=== PATIENT | male | born 1970 | race Caucasian/White ===

== ENCOUNTER 2022-07-08 09:46 | Inpatient (IN) | payer OTHER, SELFPAY ==
--- NOTE | ~2022-07-08 | CT_ITS ---
EXAMINATION: CT CERVICAL SPINE WITHOUT CONTRAST CLINICAL INFORMATION: Syncope and collapse. COMPARISON: None available. TECHNIQUE: Multiple axial images of the cervical spine were obtained without the administration of intravenous contrast. Coronal and sagittal reformatted images were obtained. This CT examination was performed using dose optimization techniques as appropriate, variously including the following: *Automated exposure control *Adjustment of mA and/or kV according to patient size (this includes techniques or standardized protocols for targeted exams where dose is matched to indication/reason for exam; i.e. extremities or head) *Use of iterative reconstruction technique DLP: 471.19 mGy-cm FINDINGS: Mild to moderate multilevel degenerative disc disease is seen most pronounced at C3-4 with minimal grade 1 retrolisthesis and C6-7. Mild bilateral neural foraminal narrowing is seen at these levels as well. The vertebral bodies are intact. The odontoid process is intact. Mild to moderate multilevel bilateral facet arthropathy is seen. Osseous fusion is seen on the left at C5-6. The spinous processes are intact. There is no acute fracture. The cervical soft tissues are unremarkable. There is no lymphadenopathy. The thyroid gland is unremarkable. The lung apices are clear. CT/CT cervical spine wo IV con IMPRESSION: Multilevel degenerative changes without acute abnormality.
--- NOTE | ~2022-07-08 | US_ITS ---
EXAMINATION: US ABDOMEN COMPLETE CLINICAL INFORMATION: Elevated LFTs. Site of pain.. COMPARISON: None available. TECHNIQUE: Real-time imaging of the abdominal viscera. FINDINGS: PANCREAS: Small portion of the body is identified with the head and tail being obscured by overlying bowel gas. ABDOMINAL AORTA: Obscured by overlying bowel gas. INFERIOR VENA CAVA: Obscured by overlying bowel gas. LIVER: There is increased echogenicity consistent with fatty infiltration. The liver is normal in size. The liver contour is normal. No focal hepatic lesion. There is no intrahepatic biliary duct dilatation seen. GALLBLADDER: Normal. The gallbladder is physiologically distended without evidence of stones, sludge, polyps, wall thickening or pericholecystic fluid. COMMON BILE DUCT: Normal in caliber measuring 0.3 cm in diameter. RIGHT KIDNEY: Normal. No hydronephrosis. No renal calculi or focal parenchymal lesions. The kidney measures 12.1 cm in maximum dimension. LEFT KIDNEY: Normal. No hydronephrosis. No renal calculi or focal parenchymal lesions. The kidney measures 10.8 cm in maximum dimension. SPLEEN: Normal. The spleen measures 12.2 cm in maximum dimension. FREE FLUID: None. US/US abdomen complete IMPRESSION: Increased echogenicity of the liver consistent with fatty infiltration.
--- NOTE | ~2022-07-08 | CT_ITS ---
EXAMINATION: CT HEAD WITHOUT CONTRAST CLINICAL INFORMATION: Syncope and collapse, rule out intracranial abnormality. COMPARISON: None available. TECHNIQUE: Contiguous axial imaging was performed from the skull base to vertex without intravenous administration of contrast. Coronal and sagittal reformatted images were obtained. This CT examination was performed using dose optimization techniques as appropriate, variously including the following: *Automated exposure control *Adjustment of mA and/or kV according to patient size (this includes techniques or standardized protocols for targeted exams where dose is matched to indication/reason for exam; i.e. extremities or head) *Use of iterative reconstruction technique DLP: 637.27 mGy-cm FINDINGS: There is mild widening of the cortical sulci and associated ventriculomegaly. The lateral ventricles are symmetrical. The third and fourth ventricles are in their normal midline position. The basilar and prepontine cisterns are unremarkable. There is no acute intra or extracerebral abnormality. There is no mass effect or midline shift. Sections through the bony calvarium are unremarkable. The orbits are intact. The paranasal sinuses mild to moderate mucosal thickening is seen in the ethmoid, sphenoid and right maxillary sinuses. The mastoid air cells are clear. CT/CT head/brain wo IV con IMPRESSION: 1. No acute intracranial pathology. 2. Mild to moderate inflammatory changes in the paranasal sinuses.
--- NOTE | ~2022-07-08 | XR_ITS ---
EXAMINATION: XR CHEST CLINICAL INFORMATION: Syncope. COMPARISON: None available. TECHNIQUE: Frontal view of the chest was obtained. FINDINGS: No significant abnormality is noted involving the heart, lungs, mediastinum, bony thorax or soft tissues. XR/XR chest 1V IMPRESSION: No acute cardiopulmonary process.
[2022-07-08 09:55] VITALS: BP 170/90; PULSE 96; O2SAT 99
--- NOTE | 2022-07-08 10:04 | ED_ITS ---
HPI - Syncope General Chief Complaint: Altered Mental Status Stated Complaint: Collapsed at work per EMS Time Seen by Provider: 07/08/22 10:04 Source: patient, EMS, RN notes reviewed and other Mode of arrival: EMS History of Present Illness HPI narrative: 52-year-old male with a past medical history of ETOH abuse, presenting to the ED via EMS s/p witnessed ?seizure with fall at work [employer]. Patient does not remember incident. Spoke with co-worker who reports saw patient walking, states hands were flapping, was unsteady/mumbling, then fell on pavement with noted shaking/seizure-like activity for 2-3 minutes with foaming at the mouth. States patient was unresponsive after incident. Patient reports drinking a couple nips a day, last drink on Wednesday, denies history of ETOH withdrawal/withdrawal seizures. Denies taking anticoagulation. Reports tongue biting. Denies urinary incontinence, headache, CP/SOB, abdominal pain, nausea/vomiting MD complaint: loss of consciousness Related Data Home Medications Medication Instructions Recorded Confirmed atenolol 50 mg tablet 50 mg PO DAILY 07/08/22 07/08/22 simvastatin 40 mg tablet 40 mg PO BEDTIME 07/08/22 07/08/22 Allergies Allergy/AdvReac Type Severity Reaction Status Date / Time No Known Allergies Allergy Verified 07/08/22 10:12 Review of Systems Review of Systems: Constitutional: No Fever Eyes: No Eye Pain, No Swelling, No Vision Changes Cardiovascular: No Chest Pain, No SOB Respiratory: No Cough, No Dyspnea Gastrointestinal: No Nausea, No Vomiting, No Diarrhea, No Constipation, No Abdominal pain Genitourinary: No Urinary Incontinence/retention Musculoskeletal: No joint pain, No Myalgias Skin: No Skin Lesions, No rash Neuro: No Weakness, +Loss of Consciousness, No Headache, ?seizure vs syncope Yes all other systems are reviewed and are negative Constitutional: Constitutional: Reports as per HPI Neurologic: Denies Abnormal speech present and Reports confusion Psychiatric: Psychiatric: Reports confusion PMFSH Past Medical History Attestation statement: The following information was validated with the patient. Social History Social History Household Members: Significant Other and Children Housing: House Do you presently have visiting nurse or other home services: No Alcohol intake: current Alcohol intake frequency: 3 or more drinks per day Alcohol type: hard liquor Patient Tobacco Use Status: Former Tobacco user Tobacco use type: Cigarette Smoked in Last 30 Days: No Patient Interested in Nicotine Replacement: No Patient Given Instructions on How to Stop Smoking: No Second Hand Smoke Exposure: No Use of substances other than those prescribed or required for medical reasons: No Currently Displaying Signs/Symptoms of Drug Intoxication Withdrawal: No Any prior treatment program specific to substance use: No Have you been hit, kicked, punched, or otherwise hurt by someone within the past year? If so, by whom?: No Do you feel safe in your current relationship?: Yes Is there a partner from a previous relationship who is making you feel unsafe now?: No Are you made to feel afraid or neglected: No Advance Directives: No Do you have thoughts of harming others: None Do you have a plan to hurt others: No Plan Recently lost weight without trying: No Eating poorly because of decreased appetite: No Nutrition Risks: No Nutritional Risk Poor oral hygiene: No Physical Exam Vital Signs: Vital Signs: Last Vital Signs Temp 98.8 F 07/08/22 15:25 Pulse 95 07/08/22 15:25 Resp 17 07/08/22 15:25 BP 162/99 H 07/08/22 15:25 Pulse Ox 99 07/08/22 15:25 O2 Del Method Room Air 07/08/22 15:25 BMI result Body Mass Index 26.8 Const: General: cooperative, healthy appearing, no acute distress and confusio n Orientation/consciousness: oriented to person, oriented to place and co nfusion Limitations: no limitations HEENT: Other: + left lateral tongue biting noted. Not through and through. Bleeding controlled Head: Yes normal to inspection, Yes atraumatic, No Herrera's sign and No raccoon eyes Ears: hearing grossly normal bilaterally General nose exam: Normal external nose present Face and sinus: Yes normal facial exam Eyes: General: appearance normal, both eyes and all related structures Pupils: Dilated pupils bilaterally EOM: EOMs intact bilaterally Neck: Other: No midline cervical spinous tenderness Neck: Yes normal visual inspection, Yes no meningeal signs and No anterior neck swelling Chest: Chest palpation & inspection: normal inspection of the chest, no crepitus and no tenderness Resp: Effort & Inspection: normal respiratory effort and no respiratory distress Auscultation: clear to auscultation bilaterally Cardio: Rate: regular rate Heart sounds: S1 normal heart sound present and S2 normal heart sound present GI: Inspection: Yes normal to inspection Palpation (GI): Soft to palpation, nontender, no guarding and not rigid Back/Spine/Pelvis: Other: No midline thoracic/lumbar spinous tenderness/step-off or deformity Skin: Rashes: no rashes Wounds: no wounds Neuro: General: oriented to person, oriented to place, tone normal, moves all extremities, no meningeal signs, no focal motor deficits, CN's II-XI intact martin aterally and confusion Cranial nerves: Yes CN's II-XII intact bilaterally and Yes Bilaterally intact EOM present Cognition (Neuro): normal cognition Speech: No Abnormal speech present Motor exam (neuro): 5/5 motor strength present throughout, Tremors during motor activity present (UE's) and Motor fasciculations present Extrem: General: Yes normal to inspection Course Course Course Narrative: -1228--pancytopenia likely from chronic ETOH use. Magnesium low 1.4 >>2 g IV repletion ordered -bilirubin, AST/ALT elevated likely from ETOH use. Troponin negative. Ethanol negative XR chest 1V IMPRESSION: No acute cardiopulmonary process. CT head/brain wo IV con/CT cervical spine wo IV con IMPRESSION: 1.? No acute intracranial pathology. 2.? Mild to moderate inflammatory changes in the paranasal sinuses. > plan to admit patient for EtOH withdrawal seizure. Phenobarb protocol initiated. Medications Administered Generic Name Dose Route Start Last Admin Trade Name Freq PRN Reason Stop Dose Admin Folic Acid 1 mg 07/08/22 13:45 07/08/22 14:27 Folic Acid 1 Mg Tablet PO 07/11/22 13:44 1 mg DAILY CRISTIANO Administration Lactated Ringer's 1,000 mls @ 100 mls/hr 07/08/22 13:45 07/08/22 16:08 Lr IVCONT 100 mls/hr .Q10H CRISTIANO Administration Magnesium Oxide 400 mg 07/08/22 17:30 07/08/22 16:08 Magnesium Oxide 400 Mg Tablet PO 400 mg BIDPC CRISTIANO Administration Multivitamins/Vitamin C 1 tab 07/08/22 13:45 07/08/22 14:27 Multivitamin Tablet PO 07/11/22 13:44 1 tab DAILY CRISTIANO Administration Pantoprazole Sodium 40 mg 07/08/22 13:45 07/08/22 14:27 Pantoprazole Sodium 40 Mg/10 Ml Vial IVPUSH 40 mg DAILY@0630 CRISTIANO Administration Phenobarbital Sodium 243 mg 07/08/22 16:00 07/08/22 16:07 Phenobarbital Sodium 130 Mg/Ml Vial Im Q3hx2 IM 07/08/22 19:01 243 mg Q3H CRISTIANO Administration Protocol Sodium Chloride 3 ml 07/08/22 16:00 07/08/22 16:08 0.9 % Sodium Chloride Flush 3 Ml Syringe IVFLUSH 3 ml QSHIFT CRISTIANO Administration Thiamine HCl 100 mg 07/08/22 13:45 07/08/22 14:27 Thiamine Hcl 100 Mg Tablet PO 07/11/22 13:44 100 mg DAILY CRISTIANO Administration Discontinued Medications Generic Name Dose Route Start Last Admin Trade Name [place] PRN Reason Stop Dose Admin Sodium Chloride 1,000 mls @ 999 mls/hr 07/08/22 10:15 07/08/22 11:51 Ns IV 07/08/22 11:15 Infused .Q1H1M CRISTIANO Infusion Magnesium Sulfate 2 gm in 50 mls @ 25 mls/hr 07/08/22 10:59 07/08/22 13:21 Magnesium Sulfate/H2o IV 07/08/22 12:58 Infused ONCE ONE Infusion Lorazepam 2 mg 07/08/22 10:22 07/08/22 10:51 Lorazepam 2 Mg/Ml Vial IVPUSH 07/08/22 10:23 2 mg ONCE ONE Administration Phenobarbital Sodium 324 mg 07/08/22 13:00 07/08/22 13:34 Phenobarbital Sodium 130 Mg/Ml Im Once IM 07/08/22 13:01 324 mg ONCE ONE Administration Protocol Medical Decision Making Medical Decision Making MDM Narrative: 52-year-old male with a past medical history of ETOH abuse, presenting to the ED via EMS s/p witnessed ?seizure with fall at work [employer]. Patient does not remember incident. On exam low-grade temp 99.2 degrees, A&Ox2, confused, poor historian, no focal deficits, and upper extremity tremors and mild tongue fasciculations. Tongue biting noted. Concern for EtOH withdrawal seizure vs syncope. Rule out metabolic/infectious etiologies and ICH. Lower suspicion for ACS/PE. Plan: EKG, labs, UA, CXR, head/C-spine CT, IV Ativan, re-evaluate Please refer to course for remaining clinical decision making, interpretation of labs/imaging results, and discussions with consultants and/or family members. Differential Diagnosis Differential Diagnoses: The differential diagnosis associated with the presentation includes As above Admission/Observation Consideration of admission/observation: Escalation of care including admission/observation considered Lab Data MDM Lab Attestation statement: I reviewed the patient's lab results. 07/08/22 10:24 07/08/22 10:24 Labs: Lab Results 07/08/22 07/08/22 07/08/22 Range/Units 10:24 10:24 10:24 WBC 2.7 L (4.8-10.8) X10*3/uL RBC 2.40 L (4.60-5.80) X10*6/uL Hgb 8.0 L (14.0-18.0) g/dl Hct 22.8 L (42.0-52.0) % MCV 95.0 (80.0-98.0) fL MCH 33.3 H (27.0-33.0) pg MCHC 35.1 (31.0-36.0) g/dl RDW 13.6 (11.0-16.0) % Plt Count 22 L (160-400) X10*3/uL MPV 10.7 (9.4-12.4) fL Immature Gran % (Auto) 0.4 (0.0-0.4) % Neut % (Auto) 76.4 H (45-73) % Lymph % (Auto) 11.6 L (20-40) % [place] % (Auto) 10.1 (2-11) % Eos % (Auto) 1.1 (0-4) % Baso % (Auto) 0.4 (0-2) % Lymph # (Auto) 0.3 L (1.2-4.9) X10*3/uL [place] # (Auto) 0.3 (0.1-1.2) X10*3/uL Eos # (Auto) 0.0 (0.0-0.4) X10*3/uL Baso # (Auto) 0.0 (0.0-0.2) X10*3/uL Abs Immat Gran (auto) 0.01 (0.00-0.03) X10*3/uL Absolute Neuts (auto) 2.0 (2.0-8.3) x10*3/uL Absolute Nucleated RBC 0.000 (0.0-0.012) X10*3/uL Nucleated RBC % (auto) 0.0 (0.0-0.2) /100WBC PT 11.8 (10.0-13.1) SEC INR 1.0 (0.9-1.1) Sodium 140 (135-145) mmol/L Potassium 3.5 (3.3-5.1) mmol/L Chloride 105 (96-108) mmol/L Carbon Dioxide 19 L (22-29) mmol/L Anion Gap 20 (12-20) BUN 17 H (9-16) mg/dL Creatinine 0.92 (0.5-1.4) mg/dL Estim Creat Clear Calc 107.3 Estimated GFR > 60 Random Glucose 103 (60-115) mg/dL Calcium 8.9 (8.4-10.2) mg/dL Magnesium 1.4 L* (1.6-2.6) mg/dL Iron 228 H (45-160) mcg/dL TIBC 297 (228-428) mcg/dL % Saturation 77 H (15-50) % Unsat Iron Binding 69 ug/dL Total Bilirubin 2.5 H (0.0-1.0) mg/dL Direct Bilirubin 1.0 H (0.0-0.5) mg/dL AST 80 H (5-37) U/L ALT 63 H (0-40) U/L Alkaline Phosphatase 85 (39-117) U/L Troponin I High Sens (<3.5-35.0) ng/L Total Protein 6.7 (6.5-8.0) g/dL Albumin 3.8 (3.5-5.0) g/dL Vitamin B12 364 (200-900) pg/mL Folate 2.6 L (> or = 4.0) ng/mL Urine Color Urine Appearance Urine pH (5.0-9.0) Ur Specific [place] (1.005-1.025) Urine Protein (Neg-Trace) mg/dL Urine Glucose (UA) (Negative) mg/dL Urine Ketones (Negative) mg/dL Urine Blood (Negative) Urine Nitrite (Negative) Ur Leukocyte Esterase (Negative) Urine RBC (0-2) /HPF Urine WBC (0-5) /HPF Ur Squamous Epith Cells (0-2) /HPF Urine Bacteria (None Seen) Hyaline Casts (0-2) /LPF Urine Opiates Screen (Not Detect) Urine Fentanyl Screen (Not Detect) Ur Barbiturates Screen (Not Detect) Ur Phencyclidine Scrn (Not Detect) Ur Amphetamines Screen (Not Detect) U Benzodiazepines Scrn (Not Detect) Urine Cocaine Screen (Not Detect) U Marijuana (THC) Screen (Not Detect) Ethyl Alcohol < 10 mg/dL COVID-19 ([facility]) (Negative) COVID-19 Clin Com HIV 1&2 Ab/P24 Ag 4thGn (Nonreactive) 07/08/22 07/08/22 07/08/22 Range/Units 10:24 10:24 10:25 WBC (4.8-10.8) X10*3/uL RBC (4.60-5.80) X10*6/uL Hgb (14.0-18.0) g/dl Hct (42.0-52.0) % MCV (80.0-98.0) fL MCH (27.0-33.0) pg MCHC (31.0-36.0) g/dl RDW (11.0-16.0) % Plt Count (160-400) X10*3/uL MPV (9.4-12.4) fL Immature Gran % (Auto) (0.0-0.4) % Neut % (Auto) (45-73) % Lymph % (Auto) (20-40) % [place] % (Auto) (2-11) % Eos % (Auto) (0-4) % Baso % (Auto) (0-2) % Lymph # (Auto) (1.2-4.9) X10*3/uL [place] # (Auto) (0.1-1.2) X10*3/uL Eos # (Auto) (0.0-0.4) X10*3/uL Baso # (Auto) (0.0-0.2) X10*3/uL Abs Immat Gran (auto) (0.00-0.03) X10*3/uL Absolute Neuts (auto) (2.0-8.3) x10*3/uL Absolute Nucleated RBC (0.0-0.012) X10*3/uL Nucleated RBC % (auto) (0.0-0.2) /100WBC PT (10.0-13.1) SEC INR (0.9-1.1) Sodium (135-145) mmol/L Potassium (3.3-5.1) mmol/L Chloride (96-108) mmol/L Carbon Dioxide (22-29) mmol/L Anion Gap (12-20) BUN (9-16) mg/dL Creatinine (0.5-1.4) mg/dL Estim Creat Clear Calc Estimated GFR Random Glucose (60-115) mg/dL Calcium (8.4-10.2) mg/dL Magnesium (1.6-2.6) mg/dL Iron (45-160) mcg/dL TIBC (228-428) mcg/dL % Saturation (15-50) % Unsat Iron Binding ug/dL Total Bilirubin (0.0-1.0) mg/dL Direct Bilirubin (0.0-0.5) mg/dL AST (5-37) U/L ALT (0-40) U/L Alkaline Phosphatase (39-117) U/L Troponin I High Sens < 2.7 (<3.5-35.0) ng/L Total Protein (6.5-8.0) g/dL Albumin (3.5-5.0) g/dL Vitamin B12 (200-900) pg/mL Folate (> or = 4.0) ng/mL Urine Color Urine Appearance Urine pH (5.0-9.0) Ur Specific [place] (1.005-1.025) Urine Protein (Neg-Trace) mg/dL Urine Glucose (UA) (Negative) mg/dL Urine Ketones (Negative) mg/dL Urine Blood (Negative) Urine Nitrite (Negative) Ur Leukocyte Esterase (Negative) Urine RBC (0-2) /HPF Urine WBC (0-5) /HPF Ur Squamous Epith Cells (0-2) /HPF Urine Bacteria (None Seen) Hyaline Casts (0-2) /LPF Urine Opiates Screen (Not Detect) Urine Fentanyl Screen (Not Detect) Ur Barbiturates Screen (Not Detect) Ur Phencyclidine Scrn (Not Detect) Ur Amphetamines Screen (Not Detect) U Benzodiazepines Scrn (Not Detect) Urine Cocaine Screen (Not Detect) U Marijuana (THC) Screen (Not Detect) Ethyl Alcohol mg/dL COVID-19 ([facility]) Negative (Negative) COVID-19 Clin Com See Note HIV 1&2 Ab/P24 Ag 4thGn Nonreactive (Nonreactive) 07/08/22 07/08/22 07/08/22 Range/Units 13:33 13:33 13:33 WBC (4.8-10.8) X10*3/uL RBC (4.60-5.80) X10*6/uL Hgb (14.0-18.0) g/dl Hct (42.0-52.0) % MCV (80.0-98.0) fL MCH (27.0-33.0) pg MCHC (31.0-36.0) g/dl RDW (11.0-16.0) % Plt Count (160-400) X10*3/uL MPV (9.4-12.4) fL Immature Gran % (Auto) (0.0-0.4) % Neut % (Auto) (45-73) % Lymph % (Auto) (20-40) % [place] % (Auto) (2-11) % Eos % (Auto) (0-4) % Baso % (Auto) (0-2) % Lymph # (Auto) (1.2-4.9) X10*3/uL [place] # (Auto) (0.1-1.2) X10*3/uL Eos # (Auto) (0.0-0.4) X10*3/uL Baso # (Auto) (0.0-0.2) X10*3/uL Abs Immat Gran (auto) (0.00-0.03) X10*3/uL Absolute Neuts (auto) (2.0-8.3) x10*3/uL Absolute Nucleated RBC (0.0-0.012) X10*3/uL Nucleated RBC % (auto) (0.0-0.2) /100WBC PT (10.0-13.1) SEC INR (0.9-1.1) Sodium (135-145) mmol/L Potassium (3.3-5.1) mmol/L Chloride (96-108) mmol/L Carbon Dioxide (22-29) mmol/L Anion Gap (12-20) BUN (9-16) mg/dL Creatinine (0.5-1.4) mg/dL Estim Creat Clear Calc Estimated GFR Random Glucose (60-115) mg/dL Calcium (8.4-10.2) mg/dL Magnesium (1.6-2.6) mg/dL Iron (45-160) mcg/dL TIBC (228-428) mcg/dL % Saturation (15-50) % Unsat Iron Binding ug/dL Total Bilirubin (0.0-1.0) mg/dL Direct Bilirubin (0.0-0.5) mg/dL AST (5-37) U/L ALT (0-40) U/L Alkaline Phosphatase (39-117) U/L Troponin I High Sens 4.9 D (<3.5-35.0) ng/L Total Protein (6.5-8.0) g/dL Albumin (3.5-5.0) g/dL Vitamin B12 (200-900) pg/mL Folate (> or = 4.0) ng/mL Urine Color Dark Yellow Urine Appearance Clear Urine pH 7.5 (5.0-9.0) Ur Specific [place] 1.020 (1.005-1.025) Urine Protein 30 (1+) H (Neg-Trace) mg/dL Urine Glucose (UA) Negative (Negative) mg/dL Urine Ketones 15 (Negative) mg/dL Urine Blood Negative (Negative) Urine Nitrite Negative (Negative) Ur Leukocyte Esterase Trace H (Negative) Urine RBC 0-2 (0-2) /HPF Urine WBC 0-5 (0-5) /HPF Ur Squamous Epith Cells 0-2 (0-2) /HPF Urine Bacteria None Seen (None Seen) Hyaline Casts 0-2 (0-2) /LPF Urine Opiates Screen Not Detected (Not Detect) Urine Fentanyl Screen Not Detected (Not Detect) Ur Barbiturates Screen Not Detected (Not Detect) Ur Phencyclidine Scrn Not Detected (Not Detect) Ur Amphetamines Screen Not Detected (Not Detect) U Benzodiazepines Scrn Not Detected (Not Detect) Urine Cocaine Screen Not Detected (Not Detect) U Marijuana (THC) Screen Not Detected (Not Detect) Ethyl Alcohol mg/dL COVID-19 ([facility]) (Negative) COVID-19 Clin Com HIV 1&2 Ab/P24 Ag 4thGn (Nonreactive) Independent Interpretation I performed an independent interpretation of an: EKG (My interpretation EKG is normal sinus rhythm at a rate is 78. IN interval 160. QTC 433. No STEMI. Inverted T-wave in V3 ) Radiology Impression Discussion of test interpretation with radiology: I have reviewed the radiologist's reading. External Record Review External record reviewed: Inpatient record, Office record, Outpatient record, Prior outpatient labs, Prior outpatient radiology, Primary care record and Outside ED record Critical Care Time Critical Care Time Critical Care Time: Yes Total Critical Care Time: 50 Attestation: I have personally provided critical care time exclusive of time spent on separately billable procedures. Time includes review of lab data, radiology results, discussion with consultants, and monitoring for potential decompensation. Intervention performed as documented. Discharge Plan Discharge Clinical Impression: Alcohol withdrawal seizure, Hypomagnesemia Patient Disposition: Admitted As Inpatient Interventions: Admission Worksheet (ED) Last Done: 07/08/22 15:02 Discharge Date/Time: 07/08/22 15:17
[2022-07-08 10:05] VITALS: BP 145/89; PULSE 86; RESP 18; TEMP 37.3; O2SAT 94; BMI 26.8
--- NOTE | 2022-07-08 10:12 | ECG_ITS ---
Test Reason : alcohol withdrawl Blood Pressure : / mmHG Vent. Rate : 078 BPM Atrial Rate : 078 BPM P-R Int : 160 ms QRS Dur : 082 ms QT Int : 380 ms P-R-T Axes : 043 -10 000 degrees QTc Int : 433 ms Normal sinus rhythm Low voltage QRS Nonspecific ST abnormality Abnormal ECG No previous ECGs available Referred By: Kristin Shaw Electronically Signed By:Giovanny Meyers
[2022-07-08 10:31] LABS: MANUAL DIFF FLAG NO
--- NOTE | 2022-07-08 10:32 | PC.NURSE ---
Labs taken, patient now in CT scan. at bedside.
[2022-07-08 10:39] LABS: Basophils Percent Auto 0.4 % (0-2); Eosinophils Percent Auto 1.1 % (0-4); Hematocrit 22.8 % (42.0-52.0); Imm Gran Abs Auto 0.01 X10*3/uL (0.00-0.03); Imm Gran Pct Auto 0.4 % (0.0-0.4); Lymphocytes Absolute Auto 0.3 X10*3/uL (1.2-4.9); Lymphocytes Percent Auto 11.6 % (20-40); Mean Corpuscular HGB Conc 35.1 g/dl (31.0-36.0); Mean Corpuscular Hemoglobin 33.3 pg (27.0-33.0); Mean Platelet Volume 10.7 fL (9.4-12.4); Monocytes Absolute Auto 0.3 X10*3/uL (0.1-1.2); Monocytes Percent Auto 10.1 % (2-11); Neutrophils Percent Auto 76.4 % (45-73); Red Cell Distribution Width 13.6 % (11.0-16.0)
[2022-07-08 10:41] LABS: Prothrombin Time 11.8 SEC (10.0-13.1)
[2022-07-08 10:49] LABS: COVID-19 Test Negative (Negative); IDNOW Serial# 08D9AD1C
[2022-07-08] MEDS: 0.9 % Sodium Chloride 1,000 ML 999 ML IV (10:50)
[2022-07-08] MEDS: LORazepam 2 MG/ML VIAL IVPUSH (10:51)
[2022-07-08 10:57] LABS: Platelet Count 22 X10*3/uL (160-400)
[2022-07-08 10:58] LABS: White Blood Count 2.7 X10*3/uL (4.8-10.8)
[2022-07-08 10:59] LABS: Alanine Aminotransferase 63 U/L (0-40); Albumin Level 3.8 g/dL (3.5-5.0); Alkaline Phosphatase 85 U/L (39-117); Anion Gap 20 (12-20); Aspartate Amino Transferase 80 U/L (5-37); Bilirubin Total 2.5 mg/dL (0.0-1.0); Blood Urea Nitrogen 17 mg/dL (9-16); Calcium 8.9 mg/dL (8.4-10.2); Carbon Dioxide 19 mmol/L (22-29); Chloride 105 mmol/L (96-108); Creatinine Clr Calc Pharmacy 107.3; Estimated Glomerular Filt Rate > 60; Ethanol < 10 mg/dL; Glucose Random 103 mg/dL (60-115); Magnesium 1.4 mg/dL (1.6-2.6); Potassium 3.5 mmol/L (3.3-5.1); Sodium 140 mmol/L (135-145); Total Protein 6.7 g/dL (6.5-8.0)
[2022-07-08 11:01] LABS: Troponin-I High Sensitivity < 2.7 ng/L (<3.5-35.0)
[2022-07-08 11:21] VITALS: BP 148/76; PULSE 75; RESP 15; O2SAT 98
[2022-07-08] MEDS: Magnesium Sulfate/H2O 2 GM/50 ML PIGGYBACK IV (11:21)
--- NOTE | 2022-07-08 12:41 | P.HPHOSP_ITS ---
History of Present Illness Date of Service: 07/08/22 Attending physician on admission: Terrence Escobar Chief Complaint: Alcohol withdrawal Pt is a 52-year-old male with a PMH significant for alcohol use disorder,? who presents to the ED after a witnessed seizure at work. Pt unable to recall even ts. The ED provider spoke with co-worker reports they saw the pt walking when he started mumbling, flapping his hands, and became unsteady. Fell to the pavement with [id number] movements for 2-3 minutes with foaming at the mouth. Pt was unresponsive after the incident and EMS was called. Pt states he has had some nausea and vomiting previosuly, though none now. Bit his tongue during seizure. Denies hematemesis. Denies any acute pain: No headache, back ache, chest pain/pressure, palpitations, abdominal pain. Denies difficulty breathing, no fever, chills, diarrhea. Patient states he has never experienced anything like this before. No hx of alcohol withdrawal or seizures. Says he has been drinking around a half a pint of schnapps daily for a long time, though hasn't had anything to drink since Wednesday. States he has not been eating much lately. In the ED patient was mildly hypertensive at 149/89, temperature 99.2. Labs were significant for pancytopenia of WBC 2.7, H&H of 8.0/22.8, platelets 22, hypomagnesmia of 1.4, transaminitis of total bili of 2.5, direct bilirubin 1.0, AST of 80, ALT of 63. Troponins negative, ethyl alcohol < 10. CXR showed no acute cardiopulmonary process. CT?of head showed no acute intracranial pathology. CT of cervical spine showed multilevel degenerative changes without acute abnormality. EKG demonstrated normal sinus rhythm without evidence of ST elevations or depressions. Pt was treated with IVF, lorazepam, magnesium sulfate, and started on phenobarbital protocol. Pt will be admitted to the hospital for treatment of acute alcohol withdrawal. Review of Systems Review of Systems: Seizure Tongue bite N/V Hand tremors Denies hematemesis Denies auditory and visual hallucinations No anxiety Yes all other systems are reviewed and are negative [facility], [facility] Social History Alcohol intake: current Alcohol intake frequency: 3 or more drinks per day Alcohol type: hard liquor Smoked in Last 30 Days: No Use of substances other than those prescribed or required for medical reasons: No Any prior treatment program specific to substance use: No Advance Directives: No Meds Allergies Allergy/AdvReac Type Severity Reaction Status Date / Time No Known Allergies Allergy Verified 07/08/22 10:12 Active Medications: Current Medications Magnesium Sulfate (Magnesium Sulfate/H2o) 2 gm in 50 mls @ 25 mls/hr IV ONCE ONE Stop: 07/08/22 12:58 Last Admin: 07/08/22 11:21 Dose: 25 mls/hr Pharmacy Consult (Consult Rx Etoh Phenob Po Only) 1 each MISCELLANE ONCE PRN; Protocol PRN Reason: Consult order Home Medications Medication Instructions Recorded Confirmed Last Taken Type atenolol 50 mg tablet 50 mg PO DAILY 07/08/22 07/08/22 Unknown History simvastatin 40 mg tablet 40 mg PO BEDTIME 07/08/22 07/08/22 Unknown History Physical Exam Vital Signs and Narrative: Vital Signs: Last Vital Signs Temp 99.2 F 07/08/22 10:05 Pulse 75 07/08/22 11:21 Resp 15 07/08/22 11:21 BP 148/76 H 07/08/22 11:21 Pulse Ox 98 07/08/22 11:21 O2 Del Method Room Air 07/08/22 11:21 BMI result Body Mass Index 26.8 Constitutional: Alert, in no acute distress. Mild tremors Mental Status: Oriented to person, place and time. Eyes: Pupils are equal, round, and reactive to light. Ear, Nose, and Throat: Oropharynx clear, mucous membranes dry. Small laceration on left side of tongue. Ears and nose without deformities. Trachea midline. Respiratory: Clear to auscultation bilaterally. No wheezing, rales, or rhonchi. Cardiovascular: S1, S2 regular. No murmurs, rubs, or gallops. Gastrointestinal: Abdomen soft, non-tender, non-distended. Normal bowel sounds. Neurologic: Cranial nerves II-XII are grossly intact bilaterally. No focal neurological deficits. Moves all extremities spontaneously. Tongue fasciculations noted. Minor tremors of upper and lower extremities bilaterally. Skin: Warm, dry. Extremities: No edema. Psychiatric: Normal mood and affect. Results Labs 07/08/22 10:24 07/08/22 10:24 Labs: Laboratory Results - last 24 hr 07/08/22 07/08/22 07/08/22 10:24 10:24 10:24 MCV 95.0 MCH 33.3 H MCHC 35.1 RDW 13.6 Plt Count 22 L MPV 10.7 Immature Gran % (Auto) 0.4 Neut % (Auto) 76.4 H Lymph % (Auto) 11.6 L Bailey % (Auto) 10.1 Eos % (Auto) 1.1 Baso % (Auto) 0.4 Lymph # (Auto) 0.3 L Bailey # (Auto) 0.3 Eos # (Auto) 0.0 Baso # (Auto) 0.0 Abs Immat Gran (auto) 0.01 Absolute Neuts (auto) 2.0 Absolute Nucleated RBC 0.000 Nucleated RBC % (auto) 0.0 PT 11.8 INR 1.0 Anion Gap 20 Estim Creat Clear Calc 107.3 Estimated GFR > 60 Random Glucose 103 Calcium 8.9 Magnesium 1.4 L* Total Bilirubin 2.5 H Direct Bilirubin 1.0 H AST 80 H ALT 63 H Alkaline Phosphatase 85 Troponin I High Sens Total Protein 6.7 Albumin 3.8 Ethyl Alcohol < 10 COVID-19 (MAGGIE) COVID-19 [employer] Com 07/08/22 07/08/22 10:24 10:25 MCV MCH MCHC RDW Plt Count MPV Immature Gran % (Auto) Neut % (Auto) Lymph % (Auto) Bailey % (Auto) Eos % (Auto) Baso % (Auto) Lymph # (Auto) Bailey # (Auto) Eos # (Auto) Baso # (Auto) Abs Immat Gran (auto) Absolute Neuts (auto) Absolute Nucleated RBC Nucleated RBC % (auto) PT INR Anion Gap Estim Creat Clear Calc Estimated GFR Random Glucose Calcium Magnesium Total Bilirubin Direct Bilirubin AST ALT Alkaline Phosphatase Troponin I High Sens < 2.7 Total Protein Albumin Ethyl Alcohol COVID-19 (MAGGIE) Negative COVID-19 Clin Com See Note Imaging Radiologist's Impressions: Impressions Cervical Spine CT 07/08/22 10:40 IMPRESSION: Multilevel degenerative changes without acute abnormality. Head CT 07/08/22 10:40 IMPRESSION: 1. No acute intracranial pathology. 2. Mild to moderate inflammatory changes in the paranasal sinuses. Chest X-Ray 07/08/22 10:41 IMPRESSION: No acute cardiopulmonary process. Assessment and Plan (1) Alcohol withdrawal seizure: Status: Acute (2) Hypomagnesemia: Status: Acute (3) Pancytopenia: Status: Acute (4) Transaminitis: Status: Acute Plan Pt is a 52-year-old male with a PMH significant for alcohol use disorder,? who presents to the ED after a witnessed seizure at work. Pt will be admitted to the hospital on telemetry for treatment of acute alcohol withdrawal. Acute alcohol withdrawal Mild shakiness, no hallucinations Received IVF, lorazepam, and phenobarb protocol in the ED Continue Phenobarb protocol Daily multivitamin, folic acid 1mg, Thiamine 100 mg daily IV Protonix daily Addiction medicine consult Follow lytes, Mag, BMP IVF: lactated ringers Admit to telemetry CIWA scale Seizure protocols Hypomagnesmia Patient's magnesium 1.4 at time of presentation Likely secondary to chronic alcohol use Patient received Mag sulfate 2g IV in ED Mag p.o. Follow CMP Pancytopenia WBC 2.7, H&H 8.0/22.8, platelets 22 Unclear etiology, possibly secondary to chronic alcohol use Iron studies, B12, folate HIV testing Hematology consult Follow CBC Transaminitis Total bilirubin 2.5, direct bilirubin 1.0, AST 80, ALT 63 Unclear etiology, ?hepatitis, cirrhosis less likely Check hepatitis panel Will get abdominal ultrasound Follow CMP HTN Continue home meds HLD Continue home meds Full Code Attending:?Dr. Escobar DVT Prophylaxis: Pneumatic boots Pt will require a hospitalization of at least two nights for treatment of?acute alcohol withdrawal with IV phenobarbital. Time Spent With Patient Time: Total time managing care of this patient today ____ minutes. Quality Stroke Does the patient have a stroke diagnosis?: No VTE Prior VTE?: No VTE Risk Level:: Medical - moderate - high VTE Device Contraindication: N/A - Device Ordered VTE Drug Contraindication: Treatment Not Indicated
[2022-07-08] MEDS: PHENobarbitaL sodium 130 MG/ML IM ONCE 324 MG IM (13:34)
[2022-07-08 13:45] LABS: Appearance Urine Clear; Color Urine Dark Yellow; Glucose Urine UA Negative (Negative); Leukocyte Esterase Urine Trace (Negative); Nitrite Urine Negative (Negative); PH 7.5 (5.0-9.0); UMIC TRIGGER UACC YES; Urine Blood Negative (Negative); Urine Ketones 15 mg/dL (Negative); Urine Protein 30 (1+) mg/dL (Neg-Trace)
[2022-07-08 13:50] LABS: Bacteria Urine None Seen (None Seen); Hyaline Casts Urine 0-2 /LPF (0-2); RBC Urine 0-2 /HPF (0-2); Squamous Epithelial Cell Urine 0-2 /HPF (0-2); WBC Urine 0-5 /HPF (0-5)
[2022-07-08 13:53] LABS: Amphetamine Screen Urine Not Detected (Not Detect); Barbiturates, Urine Not Detected (Not Detect); Benzodiazepines Screen Urine Not Detected (Not Detect); Cannabinoid Screen Urine Not Detected (Not Detect); Cocaine Screen Urine Not Detected (Not Detect); Fentanyl, urine Not Detected (Not Detect); Opiate Screen Urine Not Detected (Not Detect); Phencyclidine Screen Urine Not Detected (Not Detect)
[2022-07-08 14:09] LABS: Troponin-I High Sensitivity 4.9 ng/L (<3.5-35.0)
[2022-07-08 14:17] LABS: HIV AB/AG Nonreactive (Nonreactive); HIV Num 1 0.08 S/CO (0.00-0.99)
[2022-07-08] MEDS: Multivitamin TABLET 1 TAB PO (14:27)
[2022-07-08] MEDS: Pantoprazole Sodium 40 MG/10 ML VIAL IVPUSH (14:27)
[2022-07-08] MEDS: Thiamine HCL 100 MG TABLET PO (14:27)
[2022-07-08] MEDS: Folic Acid 1 MG TABLET PO (14:27)
--- NOTE | 2022-07-08 14:39 | PC.NURSE ---
CALL TO FLOOR FOR REPRT AT [phone].
[2022-07-08 14:44] LABS: Iron 228 mcg/dL (45-160); Percent Iron Saturation 77 % (15-50); Total Iron Binding Capacity 297 mcg/dL (228-428); Unsaturated Iron Binding 69 ug/dL
[2022-07-08 15:25] VITALS: BP 162/99; PULSE 95; RESP 17; TEMP 37.1; O2SAT 99
[2022-07-08 15:43] LABS: Folate 2.6 ng/mL (> or = 4.0); Vitamin B12 364 pg/mL (200-900)
[2022-07-08] MEDS: PHENobarbitaL sodium 130 MG/ML VIAL IM Q3Hx2 243 MG IM ×2 (16:07→18:32)
[2022-07-08] MEDS: Lactated Ringers 1,000 ML 100 ML IVCONT (16:08)
[2022-07-08] MEDS: 0.9 % Sodium Chloride Flush 3 ML SYRINGE IVFLUSH ×2 (16:08→20:59)
[2022-07-08] MEDS: Magnesium Oxide 400 MG TABLET PO (16:08)
[2022-07-08 16:25] LABS: Alanine Aminotransferase 57 U/L (0-40); Albumin Level 3.7 g/dL (3.5-5.0); Alkaline Phosphatase 80 U/L (39-117); Anion Gap 14 (12-20); Aspartate Amino Transferase 70 U/L (5-37); Bilirubin Total 2.4 mg/dL (0.0-1.0); Blood Urea Nitrogen 16 mg/dL (9-16); Calcium 8.5 mg/dL (8.4-10.2); Carbon Dioxide 26 mmol/L (22-29); Chloride 103 mmol/L (96-108); Creatinine Clr Calc Pharmacy 120.4; Estimated Glomerular Filt Rate > 60; Glucose Random 95 mg/dL (60-115); Potassium 3.5 mmol/L (3.3-5.1); Sodium 139 mmol/L (135-145); Total Protein 6.4 g/dL (6.5-8.0)
--- NOTE | 2022-07-08 16:50 | PM.HEMONCCN ---
Subjective - Subjective Chief complaint: Consult for: Pancytopenia. Patient: new to practice Consult date: 07/08/22 Requesting Physician: Mati Grace. Primary Care Provider: Maryjo Huddleston MD Medical Summary: DIAGNOSIS: PANCYTOPENIA. HPI - Consult Narrative Reason for consult: Consult for: Pancytopenia. Narrative: Surendra Calvillo is a 52 year old gentleman, with a history of alcohol use disorder,? presented, after a seizure at work. Pt unable to remember the events. The ED provider spoke with co-worker reports they saw the pt walking when he started mumbling, flapping his hands, and became unsteady. Fell to the pavement with [id number] movements for 2-3 minutes with foaming at the mouth. He was unresponsive after the incident. Pt has had some nausea and vomiting previously, though none now. Bit his tongue during seizure. abdominal pain. Denies hematemesis. Denies any acute pain: No headache, back ache, chest pain/pressure, palpitations, Denies difficulty breathing, no fever, chills, diarrhea. He has never experienced anything like this before. No hx of alcohol withdrawal or seizures. Says he has been drinking around a half a pint of schnapps daily for a long time, though hasn't had anything to drink since Wednesday. He has not been eating much lately. Here he was mildly hypertensive at 149/89, temperature 99.2. Labs were significant for pancytopenia: WBC 2.7, H&H of 8.0/22.8, platelets 22.hypomagnesmia of 1.4, transaminitis of total bili of 2.5, direct bilirubin 1.0, AST of 80, ALT of 63. Troponins negative, ethyl alcohol < 10. CXR showed no acute cardiopulmonary process. CT?of head showed no acute intracranial pathology. CT of cervical spine showed multilevel degenerative changes without acute abnormality. EKG demonstrated normal sinus rhythm without evidence of ST elevations or depressions. He was treated with IVF, lorazepam, magnesium sulfate, and started on phenobarbital protocol. Review of Systems Review of Systems: Seizure Tongue bite N/V Hand tremors Denies hematemesis Denies auditory and visual hallucinations No anxiety Yes all other systems are reviewed and are negative [facility] Social History: Alcohol intake: current Alcohol intake frequency: 3 or more drinks per day Alcohol type: hard liquor Smoked in Last 30 Days: No Use of substances other than those prescribed or required for medical reasons: No Any prior treatment program specific to substance use: No Advance Directives: No Review of Systems - Constitutional Reports system reviewed and no additional complaints, except as documented, Reports anorexia, Reports body ache(s), Reports daytime sleepiness, Reports frequent falls, Reports lack of energy, Reports weakness, Reports weight loss, Denies fever(s) - Eyes Reports system reviewed and no additional complaints, except as documented - ENT Reports system reviewed and no additional complaints, except as documented - Cardiovascular Reports system reviewed and no additional complaints, except as documented - Respiratory Reports no additional respiratory complaints - Gastrointestinal Reports system reviewed and no additional complaints, except as documented - Genitourinary Genitourinary: Reports no additional male genitourinary complaints - Musculoskeletal Reports system reviewed and no additional complaints, except as documented - Integumentary/Breasts Skin/Breast: Reports no additional skin complaints - Neurologic Reports confusion, Denies abnormal speech - Psychiatric Reports system reviewed and no additional complaints, except as documented - Endocrine Reports no additional endocrine complaints - Hematologic/Lymphatic Reports system reviewed and no additional complaints, except as documented - Allergic/Immunologic Reports system reviewed and no additional complaints, except as documented Oncology Screenings - ECOG Performance Status ECOG Performance Status: 2 [facility] [place] Social History: Social History (Last Reviewed 07/08/22 @ 13:49 by BASIL Haley) Living Situation History: Household Members: Significant Other Household Members: Children Housing: House Do you presently have visiting nurse or other home services: No Tobacco History: Patient Tobacco Use Status: Former Tobacco user Tobacco use type: Cigarette Second Hand Smoke Exposure: No Occupation Assessmet: service: No Current occupational status: employed Second hand tobacco smoke exposure: No Home Medications and Allergies Current Medications: Current Medications Acetaminophen (Acetaminophen 325 Mg Tablet) 650 mg PO Q6H PRN PRN Reason: Pain, Mild (Pain Scale 1-3) Atenolol (Atenolol 50 Mg Tablet) 50 mg PO DAILY CRISTIANO; Protocol Atorvastatin Calcium (Atorvastatin Calcium 20 Mg Tablet) 20 mg PO BEDTIME CRISTIANO Folic Acid (Folic Acid 1 Mg Tablet) 1 mg PO DAILY CRISTIANO Stop: 07/11/22 13:44 Last Admin: 07/08/22 14:27 Dose: 1 mg Lactated Ringer's (Lr) 1,000 mls @ 100 mls/hr IVCONT .Q10H [facility] Last Admin: 07/08/22 16:08 Dose: 100 mls/hr Magnesium Oxide (Magnesium Oxide 400 Mg Tablet) 400 mg PO BIDPC [facility] Last Admin: 07/08/22 16:08 Dose: 400 mg Multivitamins/Vitamin C (Multivitamin Tablet) 1 tab PO DAILY [facility] Stop: 07/11/22 13:44 Last Admin: 07/08/22 14:27 Dose: 1 tab Ondansetron HCl (Ondansetron Hcl 4 Mg/2 Ml Vial) 4 mg IVPUSH Q8H PRN PRN Reason: Nausea and Vomiting Pantoprazole Sodium (Pantoprazole Sodium 40 Mg/10 Ml Vial) 40 mg IVPUSH DAILY@0630 [facility] Last Admin: 07/08/22 14:27 Dose: 40 mg Pharmacy Consult (Consult Rx Etoh Phenob Po Only) 1 each MISCELLANE ONCE PRN; Protocol PRN Reason: Consult order Pharmacy Consult (Consult Rx Perform Med Rec) 1 each MISCELLANE ONCE PRN PRN Reason: Consult order Phenobarbital (Phenobarbital 30 Mg Tablet) 60 mg PO BID [facility]; Protocol Stop: 07/10/22 21:01 Phenobarbital (Phenobarbital 30 Mg Tablet) 30 mg PO BID [facility]; Protocol Stop: 07/12/22 21:01 Phenobarbital (Phenobarbital 30 Mg Tablet) 30 mg PO DAILY [facility]; Protocol Stop: 07/14/22 09:01 Phenobarbital Sodium (Phenobarbital Sodium 130 Mg/Ml Vial Im Q3hx2) 243 mg IM Q3H [facility]; Protocol Stop: 07/08/22 19:01 Last Admin: 07/08/22 16:07 Dose: 243 mg Sodium Chloride (0.9 % Sodium Chloride Flush 3 Ml Syringe) [facility] Last Admin: 07/08/22 16:08 Dose: 3 ml Thiamine HCl (Thiamine Hcl 100 Mg Tablet) 100 mg PO DAILY [facility] Stop: 07/11/22 13:44 Last Admin: 07/08/22 14:27 Dose: 100 mg Home Medications Medication Instructions Recorded Confirmed Type atenolol 50 mg tablet 50 mg PO DAILY 07/08/22 07/21/22 History simvastatin 40 mg tablet 40 mg PO BEDTIME 07/08/22 07/21/22 History Allergies Allergy/AdvReac Type Severity Reaction Status Date / Time No Known Allergies Allergy Verified 07/21/22 09:08 Physical Exam Vital signs: Vital Signs Temp 98.8 F 07/08/22 15:25 Pulse 95 07/08/22 15:25 Resp 17 07/08/22 15:25 BP 162/99 H 07/08/22 15:25 Pulse Ox 99 07/08/22 15:25 O2 Del Method Room Air 07/08/22 15:25 Intake & Output 07/07/22 07/08/22 07/08/22 18:59 06:59 18:59 Intake Total 1050 / 1050 Balance 1050 / 1050 Intake: Intake, IV Amount 1050 / 1050 0.9 % Sodium Chloride 1,000 ml 1000 / 1000 @ 999 mls/hr IV .Q1H1M [facility]RISTIANO Rx#: [id number] Magnesium Sulfate/H2O 2 gm In 50 / 50 50 ml @ 25 mls/hr IV ONCE ONE Rx#:[id number] Other: Last Bowel Movement 07/08/22 Weight 93.44 kg Weight 93.44 kg - Constitutional Present: moderate distress - Routine HEENT Exam Eye: Present: normal appearance ENT: Present: mucous membranes moist - Routine Neck Exam Present: supple - Routine Respiratory Exam Present: CTAB - Routine Cardiovascular Exam Cardiovascular: Present: S1 - Routine Abdominal Exam Present: normal bowel sounds, nontender - Routine Extremities Exam Present: nontender - Routine Skin Exam Present: intact - Routine Neurological Exam Present: alert, oriented X3 - Detailed Neurological Exam: Coma Scale Eye Opening: Spontaneous (4) Verbal Response: Oriented (5) - Routine Psychiatric Exam Present: agitated, flat affect. Absent: good judgment Hem/Onc Consult Result - Labs CBC & Chem 7: 07/10/22 05:31 07/10/22 05:31 Labs: Short CBC 07/08/22 Range/Units 10:24 WBC 2.7 L (4.8-10.8) X10*3/uL Hgb 8.0 L (14.0-18.0) g/dl Hct 22.8 L (42.0-52.0) % Plt Count 22 L (160-400) X10*3/uL BMP 07/08/22 07/08/22 10:24 15:54 Sodium 140 139 Potassium 3.5 3.5 Chloride 105 103 Carbon Dioxide 19 L 26 BUN 17 H 16 Creatinine 0.92 0.82 Calcium 8.9 8.5 Liver Function 07/08/22 07/08/22 Range/Units 10:24 15:54 Total Bilirubin 2.5 H 2.4 H (0.0-1.0) mg/dL Direct Bilirubin 1.0 H (0.0-0.5) mg/dL AST 80 H 70 H (5-37) U/L ALT 63 H 57 H (0-40) U/L Alkaline Phosphatase 85 80 (39-117) U/L Albumin 3.8 3.7 (3.5-5.0) g/dL Urine 07/08/22 Range/Units 13:33 Urine Color Dark Yellow Urine Appearance Clear Urine pH 7.5 (5.0-9.0) Ur Specific [place] 1.020 (1.005-1.025) Urine Protein 30 (1+) H (Neg-Trace) mg/dL Urine Glucose (UA) Negative (Negative) mg/dL Assessment and Plan Patient Active problem list reviewed?: Yes (1) Pancytopenia Status: Acute Assessment and plan: 52-year-old gentleman presented after a seizure at work. He does have a history of excessive drinking. He has been admitted with alcohol withdrawal. He has been noted to be pancytopenic. DIFFERENTIAL DIAGNOSIS: 1. ACUTE SUPPRESSIVE EFFECT OF ALCOHOL: This is most likely. 2. HYPERSPLENISM: 3. MEGALOBLASTIC ANEMIA: B12 especially folate deficiency, can cause it in the setting of alcoholism. 4. UNDERLYING MYELO INFILTRATIVE DISORDER: MDS VERSUS MULTIPLE MYELOMA VERSUS LYMPHOMA, in the differential however less likely. 5. AN INFECTION: Hepatitis-B or C versus HIV. PLAN: I will proceed with further workup. Will check B12 and folate levels: 364/2.6. He does have folate deficiency. Being replaced. Check LDH: 234 and SIEP: no monoclonal spike. He did have an ultrasound of the abdomen done today: Echogenic liver c/w fatty infiltration. Will look for hypersplenism. Will continue supportive care as you are doing. If the above workup is non revealing and the blood count continues to decline, consider a bone marrow exam for further evaluation. Thank you for the consult, I will follow along with you. CC: Mati Grace. - Time Spent With Patient Time Spent with Patient (in minutes): 30
[2022-07-08 17:29] LABS: Lactate Dehydrogenase 234 U/L (118-273)
[2022-07-08 17:55] LABS: Ferritin 116 ng/mL (20-250)
[2022-07-08 19:40] VITALS: BP 145/80; PULSE 66; RESP 15; TEMP 37.1; O2SAT 97
[2022-07-08] MEDS: Atorvastatin Calcium 20 MG TABLET PO (20:58)
[2022-07-08] MEDS: Acetaminophen 325 MG TABLET 650 MG PO (22:44)
[2022-07-08 23:38] VITALS: BP 147/85; PULSE 62; RESP 20; TEMP 36.9; O2SAT 96
[2022-07-09] MEDS: Lactated Ringers 1,000 ML 100 ML IVCONT ×2 (02:07→14:28)
[2022-07-09 03:16] VITALS: BP 147/88; PULSE 51; RESP 20; TEMP 36.1; O2SAT 98
[2022-07-09] MEDS: Pantoprazole Sodium 40 MG/10 ML VIAL IVPUSH (06:40)
[2022-07-09 07:04] VITALS: BP 151/90; PULSE 60; RESP 18; TEMP 36.8; O2SAT 99
[2022-07-09 07:45] LABS: Magnesium 1.9 mg/dL (1.6-2.6)
[2022-07-09 07:55] LABS: Mean Corpuscular HGB Conc 34.9 g/dl (31.0-36.0); Mean Corpuscular Hemoglobin 32.2 pg (27.0-33.0); Mean Corpuscular Volume 92.1 fL (80.0-98.0); Mean Platelet Volume 9.8 fL (9.4-12.4); Red Blood Count 4.07 X10*6/uL (4.60-5.80); Red Cell Distribution Width 13.4 % (11.0-16.0); White Blood Count 3.1 X10*3/uL (4.8-10.8)
[2022-07-09 07:57] LABS: Platelet Count 34 X10*3/uL (160-400)
[2022-07-09 07:58] LABS: Hemoglobin 13.1 g/dl (14.0-18.0)
[2022-07-09 07:59] LABS: Hematocrit 37.5 % (42.0-52.0)
[2022-07-09] MEDS: Magnesium Oxide 400 MG TABLET PO ×2 (08:16→17:28)
[2022-07-09] MEDS: atenoloL 50 MG TABLET PO (08:16)
[2022-07-09] MEDS: Folic Acid 1 MG TABLET PO (08:16)
[2022-07-09] MEDS: 0.9 % Sodium Chloride Flush 3 ML SYRINGE IVFLUSH ×3 (08:16→20:55)
[2022-07-09] MEDS: Multivitamin TABLET 1 TAB PO (08:16)
[2022-07-09] MEDS: Thiamine HCL 100 MG TABLET PO (08:17)
[2022-07-09] MEDS: PHENobarbitaL 30 MG TABLET 60 MG PO ×2 (08:17→20:54)
--- NOTE | 2022-07-09 09:46 | MHC.CM.PN ---
Pt admitted with ETOH abuse, pt experienced a seizure and fall and was unresponsive at work. CM met with patient, he previously resided at home with his and daughter, he was independent, employed and did not require any DME/services. Pt educated on HCP and declined at this time. Pt wishes to return home once medically cleared. PCP: Dr. Maryjo Huddleston Vax: x3 moderna D/C plan: return home with no services.
[2022-07-09 11:51] VITALS: BP 155/94; PULSE 66; RESP 18; TEMP 36.6; O2SAT 98
--- NOTE | 2022-07-09 14:23 | HO.PM.IMPN ---
Subjective Subjective Date of Service: 07/09/22 Interval History: Being followed for alcohol withdrawal, complaining of persistent hand tremors, denies nausea vomiting, no abdominal pain, no lightheadedness, no dizziness, no other acute issues since admission, tolerating diet. Review of Systems Review of Systems: Yes all other systems are reviewed and are negative Physical Exam Vital Signs: Vital Signs: Last Vital Signs Temp 97.9 F 07/09/22 11:51 Pulse 66 07/09/22 11:51 Resp 18 07/09/22 11:51 BP 155/94 H 07/09/22 11:51 Pulse Ox 98 07/09/22 11:51 O2 Del Method Room Air 07/09/22 03:16 BMI result Body Mass Index 26.8 Const: Other: General awake alert x3, no acute distress. Neck supple no JVD. CVS regular rate rhythm, Respiratory lungs clear to auscultation, no respiratory distress, no wheeze, no rhonchi. Gastrointestinal abdomen soft, nontender, bowel sounds audible, no guarding , no rigidity. Extremities no edema. Neuro nonfocal , speech clear hand tremors No asterixis. Skin no rash Psych appropriate affect Objective Data Active Medications Acetaminophen (Acetaminophen 325 Mg Tablet) 650 mg PO Q6H PRN PRN Reason: Pain, Mild (Pain Scale 1-3) Last Admin: 07/08/22 22:44 Dose: 650 mg Documented By: EMORY Atenolol (Atenolol 50 Mg Tablet) 50 mg PO DAILY [facility]; Protocol Last Admin: 07/09/22 08:16 Dose: 50 mg Documented By: BK Atorvastatin Calcium (Atorvastatin Calcium 20 Mg Tablet) 20 mg PO BEDTIME [facility] Last Admin: 07/08/22 20:58 Dose: 20 mg Documented By: EMORY Folic Acid (Folic Acid 1 Mg Tablet) 1 mg PO DAILY [facility] Stop: 07/11/22 13:44 Last Admin: 07/09/22 08:16 Dose: 1 mg Documented By: BK Lactated Ringer's (Lr) 1,000 mls @ 100 mls/hr IVCONT .Q10H [facility] Last Admin: 07/09/22 10:58 Dose: Not Given Documented By: BK Non-Admin Reason: previous bag not empty Magnesium Oxide (Magnesium Oxide 400 Mg Tablet) 400 mg PO BIDPC [facility] Last Admin: 07/09/22 08:16 Dose: 400 mg Documented By: BK Multivitamins/Vitamin C (Multivitamin Tablet) 1 tab PO DAILY [facility] Stop: 07/11/22 13:44 Last Admin: 07/09/22 08:16 Dose: 1 tab Documented By: BK Ondansetron HCl (Ondansetron Hcl 4 Mg/2 Ml Vial) 4 mg IVPUSH Q8H PRN PRN Reason: Nausea and Vomiting Pantoprazole Sodium (Pantoprazole Sodium 40 Mg/10 Ml Vial) 40 mg IVPUSH DAILY@0630 [facility] Last Admin: 07/09/22 06:40 Dose: 40 mg Documented By: EMORY Pharmacy Consult (Consult Rx Etoh Phenob Po Only) 1 each MISCELLANE ONCE PRN; Protocol PRN Reason: Consult order Pharmacy Consult (Consult Rx Perform Med Rec) 1 each MISCELLANE ONCE PRN PRN Reason: Consult order Phenobarbital (Phenobarbital 30 Mg Tablet) 60 mg PO BID [facility]; Protocol Stop: 07/10/22 21:01 Last Admin: 07/09/22 08:17 Dose: 60 mg Documented By: BK Phenobarbital (Phenobarbital 30 Mg Tablet) 30 mg PO BID [facility]; Protocol Stop: 07/12/22 21:01 Phenobarbital (Phenobarbital 30 Mg Tablet) 30 mg PO DAILY [facility]; Protocol Stop: 07/14/22 09:01 Sodium Chloride (0.9 % Sodium Chloride Flush 3 Ml Syringe) 3 ml IVFLUSH [facility] Last Admin: 07/09/22 08:16 Dose: 3 ml Documented By: BK Thiamine HCl (Thiamine Hcl 100 Mg Tablet) 100 mg PO DAILY [facility] Stop: 07/11/22 13:44 Last Admin: 07/09/22 08:17 Dose: 100 mg Documented By: BK Labs 07/09/22 07:18 07/08/22 15:54 Labs: Laboratory Results - last 24 hr 07/08/22 07/08/22 07/08/22 10:24 10:24 15:54 MCV MCH MCHC RDW Plt Count MPV Absolute Nucleated RBC Nucleated RBC % (auto) Anion Gap 14 Estim Creat Clear Calc 120.4 Estimated GFR > 60 Random Glucose 95 Calcium 8.5 Magnesium Iron 228 H TIBC 297 % Saturation 77 H Unsat Iron Binding 69 Ferritin 116 Total Bilirubin 2.4 H AST 70 H ALT 57 H Alkaline Phosphatase 80 Lactate Dehydrogenase 234 Total Protein 6.4 L Albumin 3.7 Vitamin B12 364 Folate 2.6 L HIV 1&2 Ab/P24 Ag 4thGn Nonreactive 07/09/22 07/09/22 05:40 07:18 MCV 92.1 MCH 32.2 MCHC 34.9 RDW 13.4 Plt Count 34 L D MPV 9.8 Absolute Nucleated RBC 0.000 Nucleated RBC % (auto) 0.0 Anion Gap Estim Creat Clear Calc Estimated GFR Random Glucose Calcium Magnesium 1.9 Iron TIBC % Saturation Unsat Iron Binding Ferritin Total Bilirubin AST ALT Alkaline Phosphatase Lactate Dehydrogenase Total Protein Albumin Vitamin B12 Folate HIV 1&2 Ab/P24 Ag 4thGn Assessment and Plan (1) Transaminitis: Status: Acute (2) Pancytopenia: Status: Acute (3) Alcohol withdrawal seizure: Status: Acute (4) Hypomagnesemia: Status: Acute Plan 52-year-old male with a PMH significant for alcohol use disorder,? who presents to the ED after a witnessed seizure at work.? Pt will be admitted to the hospital on telemetry for treatment of acute alcohol withdrawal. Acute alcohol withdrawal/witnessed seizure Mild shakiness, no hallucinations, no recurrent seizures Continue Phenobarb protocol, seizure precautions Daily multivitamin, folic acid 1mg, Thiamine 100 mg daily DC IV fluids and IV Protonix Addiction medicine consult pending Follow lytes, Mag, BMP Hypomagnesmia magnesium 1.4 at time of presentation, improved to 1.9 Likely secondary to chronic alcohol use Mag p.o. Follow CMP Pancytopenia WBC 2.7, H&H 8.0/22.8, platelets 22 on admission noted to have improvement in hematocrit/ platelets Unclear etiology, possibly secondary to chronic alcohol use Normal Iron studies, normal B12, folate 2.6 low continue folate replacement HIV nonreactive Seen by Dr. Horowitz [facility] SIEP studies ordered Follow CBC and clinical course Transaminitis Likely alcoholic hepatitis Total bilirubin 2.5, direct bilirubin 1.0, AST 80, ALT 63 hepatitis panel pending abdominal ultrasound showed fatty liver Follow CMP HTN stable Continue home meds HLD Continue home meds Full Code DVT Prophylaxis: Pneumatic boots Pt will require continued inpatient hospitalization for alcohol withdrawal seizures and pancytopenia Time Spent With Patient Time: Total time managing care of this patient today ____ minutes. Quality Stroke Does the patient have a stroke diagnosis?: No VTE Prior VTE?: No VTE Risk Level:: Medical - moderate - high VTE Device Contraindication: N/A - Device Ordered VTE Drug Contraindication: Treatment Not Indicated
[2022-07-09 15:33] VITALS: BP 150/94; PULSE 81; RESP 20; TEMP 36.5; O2SAT 96
--- NOTE | 2022-07-09 16:50 | HO.ADDICT_ITS ---
History of Present Illness Date of Service: 07/09/2022 Chief Complaint: Alcohol withdrawal Reason for Consult: Alcohol use disorder Sources of Information: patient interviewed and chart reviewed HPI Narrative: Patient is a 52-year-old male currently medically admitted with alcohol withdrawal and seizure. Seen in room 444, patient awake alert and engaged in interview. Hands visibly tremulous. Somewhat challenging to elicit history from patient as he was not entirely forthcoming or would answer questions in a roundabout manner. Did acknowledge that he has been drinking almost every day approximately half a pt of rumplemints. Prior to that he was drinking twisted teas every day, but reports that since April he has been trying to get in shape in has not had those any longer. Unclear how long patient has been drinking daily, but likely has been several years. Longest time without drinking patient reports was 2 months. Denies any treatment history. Denies any history of withdrawals. Denies any previous seizures. Denies any other substance use. Initially minimizing alcohol use and possible issue with alcohol, however he did state that his and daughter have voice their concern in her requesting that he stops drinking. Patient with limited insight regarding alcohol use and how it is possibly affecting his family, for example patient states that he does not drink in front of them, he drinks in another room and then hides the bottle of alcohol so they do not see it. This comic book writer inquired about patient's goals regarding drinking, does he wish to decrease or continue as he is or stop. Discussed different options for treatment or safer alcohol use. Also provided this information in writing for patient to review. Patient asking questions about naltrexone, in the and stating ?well I already take some pills in the morning was 1 more?. Review of Systems Constitutional: Reports as per HPI Diagnostics Vital Signs (24Hr): Vital Signs - 24 hr 07/08/22 19:40 07/08/22 23:38 07/09/22 03:16 Temperature 98.7 F 98.4 F 96.9 F Pulse Rate 66 62 51 Respiratory Rate 15 20 20 Blood Pressure 145/80 H 147/85 H 147/88 H Pulse Oximetry 97 96 98 Oxygen Delivery Method Room Air Room Air Room Air 07/09/22 07:04 07/09/22 11:51 07/09/22 15:33 Temperature 98.2 F 97.9 F 97.7 F Pulse Rate 60 66 81 Respiratory Rate 18 18 20 Blood Pressure 151/90 H 155/94 H 150/94 H Pulse Oximetry 99 98 96 Oxygen Delivery Method Room Air BMI result Body Mass Index 26.8 Labs 07/09/22 07:18 07/08/22 15:54 Labs: Laboratory Results - last 48 hr 07/08/22 07/08/22 07/08/22 10:24 10:24 10:24 WBC 2.7 L RBC 2.40 L Hgb 8.0 L Hct 22.8 L MCV 95.0 MCH 33.3 H MCHC 35.1 RDW 13.6 Plt Count 22 L MPV 10.7 Immature Gran % (Auto) 0.4 Neut % (Auto) 76.4 H Lymph % (Auto) 11.6 L [place] % (Auto) 10.1 Eos % (Auto) 1.1 Baso % (Auto) 0.4 Lymph # (Auto) 0.3 L [place] # (Auto) 0.3 Eos # (Auto) 0.0 Baso # (Auto) 0.0 Abs Immat Gran (auto) 0.01 Absolute Neuts (auto) 2.0 Absolute Nucleated RBC 0.000 Nucleated RBC % (auto) 0.0 PT 11.8 INR 1.0 Sodium 140 Potassium 3.5 Chloride 105 Carbon Dioxide 19 L Anion Gap 20 BUN 17 H Creatinine 0.92 Estim Creat Clear Calc 107.3 Estimated GFR > 60 Random Glucose 103 Calcium 8.9 Magnesium 1.4 L* Iron 228 H TIBC 297 % Saturation 77 H Unsat Iron Binding 69 Ferritin Total Bilirubin 2.5 H Direct Bilirubin 1.0 H AST 80 H ALT 63 H Alkaline Phosphatase 85 Lactate Dehydrogenase Troponin I High Sens Total Protein 6.7 Albumin 3.8 Vitamin B12 364 Folate 2.6 L Urine Color Urine Appearance Urine pH Ur Specific [place] Urine Protein Urine Glucose (UA) Urine Ketones Urine Blood Urine Nitrite Ur Leukocyte Esterase Urine RBC Urine WBC Ur Squamous Epith Cells Urine Bacteria Hyaline Casts Urine Opiates Screen Urine Fentanyl Screen Ur Barbiturates Screen Ur Phencyclidine Scrn Ur Amphetamines Screen U Benzodiazepines Scrn Urine Cocaine Screen U Marijuana (THC) Screen Ethyl Alcohol < 10 COVID-19 ([facility]) COVID-19 Clin Com HIV 1&2 Ab/P24 Ag 4thGn 07/08/22 07/08/22 07/08/22 10:24 10:24 10:25 WBC RBC Hgb Hct MCV MCH MCHC RDW Plt Count MPV Immature Gran % (Auto) Neut % (Auto) Lymph % (Auto) [place] % (Auto) Eos % (Auto) Baso % (Auto) Lymph # (Auto) [place] # (Auto) Eos # (Auto) Baso # (Auto) Abs Immat Gran (auto) Absolute Neuts (auto) Absolute Nucleated RBC Nucleated RBC % (auto) PT INR Sodium Potassium Chloride Carbon Dioxide Anion Gap BUN Creatinine Estim Creat Clear Calc Estimated GFR Random Glucose Calcium Magnesium Iron TIBC % Saturation Unsat Iron Binding Ferritin Total Bilirubin Direct Bilirubin AST ALT Alkaline Phosphatase Lactate Dehydrogenase Troponin I High Sens < 2.7 Total Protein Albumin Vitamin B12 Folate Urine Color Urine Appearance Urine pH Ur Specific [place] Urine Protein Urine Glucose (UA) Urine Ketones Urine Blood Urine Nitrite Ur Leukocyte Esterase Urine RBC Urine WBC Ur Squamous Epith Cells Urine Bacteria Hyaline Casts Urine Opiates Screen Urine Fentanyl Screen Ur Barbiturates Screen Ur Phencyclidine Scrn Ur Amphetamines Screen U Benzodiazepines Scrn Urine Cocaine Screen U Marijuana (THC) Screen Ethyl Alcohol COVID-19 ([facility]) Negative COVID-19 Clin Com See Note HIV 1&2 Ab/P24 Ag 4thGn Nonreactive 07/08/22 07/08/22 07/08/22 13:33 13:33 13:33 WBC RBC Hgb Hct MCV MCH MCHC RDW Plt Count MPV Immature Gran % (Auto) Neut % (Auto) Lymph % (Auto) [place] % (Auto) Eos % (Auto) Baso % (Auto) Lymph # (Auto) [place] # (Auto) Eos # (Auto) Baso # (Auto) Abs Immat Gran (auto) Absolute Neuts (auto) Absolute Nucleated RBC Nucleated RBC % (auto) PT INR Sodium Potassium Chloride Carbon Dioxide Anion Gap BUN Creatinine Estim Creat Clear Calc Estimated GFR Random Glucose Calcium Magnesium Iron TIBC % Saturation Unsat Iron Binding Ferritin Total Bilirubin Direct Bilirubin AST ALT Alkaline Phosphatase Lactate Dehydrogenase Troponin I High Sens 4.9 D Total Protein Albumin Vitamin B12 Folate Urine Color Dark Yellow Urine Appearance Clear Urine pH 7.5 Ur Specific [place] 1.020 Urine Protein 30 (1+) H Urine Glucose (UA) Negative Urine Ketones 15 Urine Blood Negative Urine Nitrite Negative Ur Leukocyte Esterase Trace H Urine RBC 0-2 Urine WBC 0-5 Ur Squamous Epith Cells 0-2 Urine Bacteria None Seen Hyaline Casts 0-2 Urine Opiates Screen Not Detected Urine Fentanyl Screen Not Detected Ur Barbiturates Screen Not Detected Ur Phencyclidine Scrn Not Detected Ur Amphetamines Screen Not Detected U Benzodiazepines Scrn Not Detected Urine Cocaine Screen Not Detected U Marijuana (THC) Screen Not Detected Ethyl Alcohol COVID-19 ([facility]) COVID-19 Clin Com HIV 1&2 Ab/P24 Ag 4thGn 07/08/22 07/09/22 07/09/22 15:54 05:40 07:18 WBC 3.1 L RBC 4.07 L D Hgb 13.1 L D Hct 37.5 L D MCV 92.1 MCH 32.2 MCHC 34.9 RDW 13.4 Plt Count 34 L D MPV 9.8 Immature Gran % (Auto) Neut % (Auto) Lymph % (Auto) [place] % (Auto) Eos % (Auto) Baso % (Auto) Lymph # (Auto) [place] # (Auto) Eos # (Auto) Baso # (Auto) Abs Immat Gran (auto) Absolute Neuts (auto) Absolute Nucleated RBC 0.000 Nucleated RBC % (auto) 0.0 PT INR Sodium 139 Potassium 3.5 Chloride 103 Carbon Dioxide 26 Anion Gap 14 BUN 16 Creatinine 0.82 Estim Creat Clear Calc 120.4 Estimated GFR > 60 Random Glucose 95 Calcium 8.5 Magnesium 1.9 Iron TIBC % Saturation Unsat Iron Binding Ferritin 116 Total Bilirubin 2.4 H Direct Bilirubin AST 70 H ALT 57 H Alkaline Phosphatase 80 Lactate Dehydrogenase 234 Troponin I High Sens Total Protein 6.4 L Albumin 3.7 Vitamin B12 Folate Urine Color Urine Appearance Urine pH Ur Specific [place] Urine Protein Urine Glucose (UA) Urine Ketones Urine Blood Urine Nitrite Ur Leukocyte Esterase Urine RBC Urine WBC Ur Squamous Epith Cells Urine Bacteria Hyaline Casts Urine Opiates Screen Urine Fentanyl Screen Ur Barbiturates Screen Ur Phencyclidine Scrn Ur Amphetamines Screen U Benzodiazepines Scrn Urine Cocaine Screen U Marijuana (THC) Screen Ethyl Alcohol COVID-19 ([facility]) COVID-19 Clin Com HIV 1&2 Ab/P24 Ag 4thGn Imaging Radiology Impressions: ITS Impressions Cervical Spine CT 07/08/22 10:40 IMPRESSION: Multilevel degenerative changes without acute abnormality. Head CT 07/08/22 10:40 IMPRESSION: 1. No acute intracranial pathology. 2. Mild to moderate inflammatory changes in the paranasal sinuses. Chest X-Ray 07/08/22 10:41 IMPRESSION: No acute cardiopulmonary process. Abdomen Ultrasound 07/08/22 14:18 IMPRESSION: Increased echogenicity of the liver consistent with fatty infiltration. Mental Status Exam Mental Status Exam Patient Appearance: Appropriate Level of Consciousness: Awake, Appropriate and Alert Patient Behavior: Appropriate Mood Description: Anxious Affect Description: Apprehensive Thought Process: Intact Thought Content: positive for Intact Judgement: Fair Medications Medications Current Medications Acetaminophen (Acetaminophen 325 Mg Tablet) 650 mg PO Q6H PRN PRN Reason: Pain, Mild (Pain Scale 1-3) Last Admin: 07/08/22 22:44 Dose: 650 mg Atenolol (Atenolol 50 Mg Tablet) 50 mg PO DAILY [facility]; Protocol Last Admin: 07/09/22 08:16 Dose: 50 mg Atorvastatin Calcium (Atorvastatin Calcium 20 Mg Tablet) 20 mg PO BEDTIME [facility] Last Admin: 07/08/22 20:58 Dose: 20 mg Folic Acid (Folic Acid 1 Mg Tablet) 1 mg PO DAILY [facility] Stop: 07/11/22 13:44 Last Admin: 07/09/22 08:16 Dose: 1 mg [facility] ([facility] 400 Mg [facility] Last Admin: 07/09/22 08:16 Dose: 400 mg Multivitamins/Vitamin C (Multivitamin Tablet) 1 tab PO DAILY [facility] Stop: 07/11/22 13:44 Last Admin: 07/09/22 08:16 Dose: 1 tab Omeprazole (Omeprazole 20 Mg Capsule.Dr) 20 mg PO DAILY@0630 [facility] Ondansetron HCl (Ondansetron Hcl 4 Mg/2 Ml Vial) 4 mg IVPUSH Q8H PRN PRN Reason: Nausea and Vomiting Pharmacy Consult (Consult Rx Etoh Phenob Po Only) 1 each MISCELLANE ONCE PRN; Protocol PRN Reason: Consult order Pharmacy Consult (Consult Rx Perform Med Rec) 1 each MISCELLANE ONCE PRN PRN Reason: Consult order Phenobarbital (Phenobarbital 30 Mg Tablet) 60 mg PO BID [facility]; Protocol Stop: 07/10/22 21:01 Last Admin: 07/09/22 08:17 Dose: 60 mg Phenobarbital (Phenobarbital 30 Mg Tablet) 30 mg PO BID [facility]; Protocol Stop: 07/12/22 21:01 Phenobarbital (Phenobarbital 30 Mg Tablet) 30 mg PO DAILY [facility]; Protocol Stop: 07/14/22 09:01 Sodium Chloride (0.9 % Sodium Chloride Flush 3 Ml Syringe) 3 ml IVFLUSH [facility] Last Admin: 07/09/22 08:16 Dose: 3 ml Thiamine HCl (Thiamine Hcl 100 Mg Tablet) 100 mg PO DAILY [facility] Stop: 07/11/22 13:44 Last Admin: 07/09/22 08:17 Dose: 100 mg Allergies Allergies Allergy/AdvReac Type Severity Reaction Status Date / Time No Known Allergies Allergy Verified 07/08/22 10:12 Assessment & Plan Assessment & Plan (1) Alcohol use disorder, severe, dependence: Status: Acute Code(s): F10.20 - Alcohol dependence, uncomplicated Assessment and Plan: * Patient contemplating naltrexone * Left information at bedside and reviewed with patient * Will follow-up in the morning Total time managing care of this patient today ___50_ minutes. [facility] Social History Social History Household Members: Significant Other and Children Housing: House Do you presently have visiting nurse or other home services: No Alcohol intake: current Alcohol intake frequency: 3 or more drinks per day Alcohol type: hard liquor Patient Tobacco Use Status: Former Tobacco user Tobacco use type: Cigarette Smoked in Last 30 Days: No Patient Interested in Nicotine Replacement: No Patient Given Instructions on How to Stop Smoking: No Second Hand Smoke Exposure: No Use of substances other than those prescribed or required for medical reasons: No Currently Displaying Signs/Symptoms of Drug Intoxication Withdrawal: No Any prior treatment program specific to substance use: No Have you been hit, kicked, punched, or otherwise hurt by someone within the past year? If so, by whom?: No Do you feel safe in your current relationship?: Yes Is there a partner from a previous relationship who is making you feel unsafe now?: No Are you made to feel afraid or neglected: No Advance Directives: No Do you have thoughts of harming others: None Do you have a plan to hurt others: No Plan Recently lost weight without trying: No Eating poorly because of decreased appetite: No Nutrition Risks: No Nutritional Risk Poor oral hygiene: No service: No Current occupational status: employed
[2022-07-09 19:17] VITALS: BP 134/87; PULSE 65; RESP 18; TEMP 36.4; O2SAT 96
[2022-07-09] MEDS: Atorvastatin Calcium 20 MG TABLET PO (20:55)
[2022-07-10] VITALS: BP 134/93; PULSE 69; RESP 20; TEMP 36.5; O2SAT 98
[2022-07-10 03:15] VITALS: BP 160/88; PULSE 57; RESP 20; TEMP 36.5; O2SAT 97
[2022-07-10 03:48] LABS: HBS Num1 0.04 mIU/mL (0-7.99); HBc Num1 0.16 S/CO (0.00-0.79); HBsAGNum1 0.38 S/CO (0.00-0.99); Hepatitis A Antibody IgM 0.14 Index (0-0.79); Hepatitis B Core Antibody Nonreactive (Nonreactive); Hepatitis B Surface Antigen Negative (Negative); ~HepC Num1 0.15 S/CO (0.00-0.79); ~Hepatitis A Antibody IgM Nonreactive (Nonreactive); ~Hepatitis B Surface Antibody NONREACTIVE (Nonreactive); ~Hepatitis C Antibody Nonreactive (Nonreactive)
[2022-07-10] MEDS: Omeprazole 20 MG CAPSULE.DR PO (05:59)
[2022-07-10 06:04] LABS: Hematocrit 39.2 % (42.0-52.0); PLT CLUMP 1
[2022-07-10 06:06] LABS: Hemoglobin 13.7 g/dl (14.0-18.0); Mean Corpuscular HGB Conc 34.9 g/dl (31.0-36.0); Mean Corpuscular Hemoglobin 32.4 pg (27.0-33.0); Mean Corpuscular Volume 92.7 fL (80.0-98.0); Red Blood Count 4.23 X10*6/uL (4.60-5.80); Red Cell Distribution Width 13.5 % (11.0-16.0)
[2022-07-10 06:12] LABS: Platelet Count 41 X10*3/uL (160-400); White Blood Count 3.8 X10*3/uL (4.8-10.8)
[2022-07-10 06:35] LABS: Alanine Aminotransferase 56 U/L (0-40); Albumin Level 3.4 g/dL (3.5-5.0); Alkaline Phosphatase 79 U/L (39-117); Anion Gap 15 (12-20); Aspartate Amino Transferase 65 U/L (5-37); Bilirubin Direct 0.7 mg/dL (0.0-0.5); Bilirubin Total 1.8 mg/dL (0.0-1.0); Blood Urea Nitrogen 12 mg/dL (9-16); Calcium 8.3 mg/dL (8.4-10.2); Carbon Dioxide 20 mmol/L (22-29); Chloride 105 mmol/L (96-108); Creatinine Clr Calc Pharmacy 135.2; Estimated Glomerular Filt Rate > 60; Glucose Random 88 mg/dL (60-115); Potassium 3.4 mmol/L (3.3-5.1); Sodium 137 mmol/L (135-145)
[2022-07-10 06:58] VITALS: BP 139/96; PULSE 77; RESP 18; TEMP 36.7; O2SAT 100
[2022-07-10] MEDS: Magnesium Oxide 400 MG TABLET PO (08:56)
[2022-07-10] MEDS: PHENobarbitaL 30 MG TABLET 60 MG PO (08:56)
[2022-07-10] MEDS: 0.9 % Sodium Chloride Flush 3 ML SYRINGE IVFLUSH (08:56)
[2022-07-10] MEDS: Thiamine HCL 100 MG TABLET PO (08:56)
[2022-07-10] MEDS: Folic Acid 1 MG TABLET PO (08:57)
[2022-07-10] MEDS: Multivitamin TABLET 1 TAB PO (08:57)
[2022-07-10] MEDS: atenoloL 50 MG TABLET PO (08:57)
[2022-07-10 11:28] VITALS: BP 122/78; PULSE 67; RESP 18; TEMP 36.7; O2SAT 97
--- NOTE | 2022-07-10 14:16 | MHC.CM.PN ---
Addendum entered by Sydney George 07/10/22 14:58: Pt medically cleared for D/C home, self care, no services. Pts to transport home. Original Note: Per MD rounds pt may discharge within the next 24 hours, CM will continue to follow.
--- NOTE | 2022-07-10 15:28 | HO.ADDICTPRO ---
Subjective Subjective Date of Service: 07/10/22 Reason For Visit: Alcohol withdrawal Interim History: Met with patient in follow-up, initially reporting he did not want to start any medication. Then later requested this radio news writer come back to meet with him and stated that he does wish to start naltrexone. Discussed dosing, side effects and goals of treatment. Patient also provided with written information on medication as well. Review of Systems Medical Review of Systems: unchanged Mental Status Exam Mental Status Exam Patient Appearance: Appropriate Level of Consciousness: Awake, Appropriate and Alert Patient Behavior: Appropriate Mood Description: Anxious Affect Description: Apprehensive Thought Process: Intact Thought Content: positive for Intact Judgement: Fair Diagnostics Vital Signs (24Hr): Vital Signs - 24 hr 07/09/22 15:33 07/09/22 19:17 07/10/22 00:00 Temperature 97.7 F 97.6 F 97.7 F Pulse Rate 81 65 69 Respiratory Rate 20 18 20 Blood Pressure 150/94 H 134/87 134/93 H Pulse Oximetry 96 96 98 Oxygen Delivery Method Room Air Room Air Room Air 07/10/22 03:15 07/10/22 06:58 07/10/22 11:28 Temperature 97.7 F 98.1 F 98.0 F Pulse Rate 57 77 67 Respiratory Rate 20 18 18 Blood Pressure 160/88 H 139/96 H 122/78 Pulse Oximetry 97 100 97 Oxygen Delivery Method Room Air Room Air Room Air BMI result Body Mass Index 26.8 Labs 07/10/22 05:31 07/10/22 05:31 Labs: Laboratory Results - last 48 hr 07/08/22 07/08/22 07/08/22 10:24 15:54 15:54 WBC RBC Hgb Hct MCV MCH MCHC RDW Plt Count MPV Absolute Nucleated RBC Nucleated RBC % (auto) Sodium 139 Potassium 3.5 Chloride 103 Carbon Dioxide 26 Anion Gap 14 BUN 16 Creatinine 0.82 Estim Creat Clear Calc 120.4 Estimated GFR > 60 Random Glucose 95 Calcium 8.5 Magnesium Ferritin 116 Total Bilirubin 2.4 H Direct Bilirubin AST 70 H ALT 57 H Alkaline Phosphatase 80 Lactate Dehydrogenase 234 Total Protein 6.4 L Albumin 3.7 Vitamin B12 364 Folate 2.6 L Hepatitis A IgM Ab Nonreactive Hep Bs Antigen Negative Hep Bs Antibody NONREACTIVE Hep B Core Total Ab Nonreactive Hepatitis C Ab (EIA) Nonreactive 07/09/22 07/09/22 07/10/22 05:40 07:18 05:31 WBC 3.1 L 3.8 L RBC 4.07 L D 4.23 L Hgb 13.1 L D 13.7 L Hct 37.5 L D 39.2 L MCV 92.1 92.7 MCH 32.2 32.4 MCHC 34.9 34.9 RDW 13.4 13.5 Plt Count 34 L D 41 L MPV 9.8 11.0 Absolute Nucleated RBC 0.000 0.000 Nucleated RBC % (auto) 0.0 0.0 Sodium Potassium Chloride Carbon Dioxide Anion Gap BUN Creatinine Estim Creat Clear Calc Estimated GFR Random Glucose Calcium Magnesium 1.9 Ferritin Total Bilirubin Direct Bilirubin AST ALT Alkaline Phosphatase Lactate Dehydrogenase Total Protein Albumin Vitamin B12 Folate Hepatitis A IgM Ab Hep Bs Antigen Hep Bs Antibody Hep B Core Total Ab Hepatitis C Ab (EIA) 07/10/22 05:31 WBC RBC Hgb Hct MCV MCH MCHC RDW Plt Count MPV Absolute Nucleated RBC Nucleated RBC % (auto) Sodium 137 Potassium 3.4 Chloride 105 Carbon Dioxide 20 L Anion Gap 15 BUN 12 Creatinine 0.73 Estim Creat Clear Calc 135.2 Estimated GFR > 60 Random Glucose 88 Calcium 8.3 L Magnesium Ferritin Total Bilirubin 1.8 H Direct Bilirubin 0.7 H AST 65 H ALT 56 H Alkaline Phosphatase 79 Lactate Dehydrogenase Total Protein 6.0 L Albumin 3.4 L Vitamin B12 Folate Hepatitis A IgM Ab Hep Bs Antigen Hep Bs Antibody Hep B Core Total Ab Hepatitis C Ab (EIA) Imaging Radiology Impressions: ITS Impressions Cervical Spine CT 07/08/22 10:40 IMPRESSION: Multilevel degenerative changes without acute abnormality. Head CT 07/08/22 10:40 IMPRESSION: 1. No acute intracranial pathology. 2. Mild to moderate inflammatory changes in the paranasal sinuses. Chest X-Ray 07/08/22 10:41 IMPRESSION: No acute cardiopulmonary process. Abdomen Ultrasound 07/08/22 14:18 IMPRESSION: Increased echogenicity of the liver consistent with fatty infiltration. Medications Medications Current Medications Acetaminophen (Acetaminophen 325 Mg Tablet) 650 mg PO Q6H PRN PRN Reason: Pain, Mild (Pain Scale 1-3) Last Admin: 07/08/22 22:44 Dose: 650 mg Atenolol (Atenolol 50 Mg Tablet) 50 mg PO DAILY [facility]; Protocol Last Admin: 07/10/22 08:57 Dose: 50 mg Atorvastatin Calcium (Atorvastatin Calcium 20 Mg Tablet) 20 mg PO BEDTIME [facility] Last Admin: 07/09/22 20:55 Dose: 20 mg Folic Acid (Folic Acid 1 Mg Tablet) 1 mg PO DAILY [facility] Stop: 07/11/22 13:44 Last Admin: 07/10/22 08:57 Dose: 1 mg [facility]esium [facility]ide ([facility] 400 Mg [facility] Last Admin: 07/10/22 08:56 Dose: 400 mg Multivitamins/Vitamin C (Multivitamin Tablet) 1 tab PO DAILY [facility] Stop: 07/11/22 13:44 Last Admin: 07/10/22 08:57 Dose: 1 tab Omeprazole (Omeprazole 20 Mg Capsule.Dr) 20 mg PO DAILY@0630 [facility] Last Admin: 07/10/22 05:59 Dose: 20 mg Ondansetron HCl (Ondansetron Hcl 4 Mg/2 Ml Vial) 4 mg IVPUSH Q8H PRN PRN Reason: Nausea and Vomiting Pharmacy Consult (Consult Rx Etoh Phenob Po Only) 1 each MISCELLANE ONCE PRN; Protocol PRN Reason: Consult order Pharmacy Consult (Consult Rx Perform Med Rec) 1 each MISCELLANE ONCE PRN PRN Reason: Consult order Phenobarbital (Phenobarbital 30 Mg Tablet) 60 mg PO BID [facility]; Protocol Stop: 07/10/22 21:01 Last Admin: 07/10/22 08:56 Dose: 60 mg Phenobarbital (Phenobarbital 30 Mg Tablet) 30 mg PO BID [facility]; Protocol Stop: 07/12/22 21:01 Phenobarbital (Phenobarbital 30 Mg Tablet) 30 mg PO DAILY [facility]; Protocol Stop: 07/14/22 09:01 Sodium Chloride (0.9 % Sodium Chloride Flush 3 Ml Syringe) 3 ml IVFLUSH QSHIFT [facility] Last Admin: 07/10/22 08:56 Dose: 3 ml Thiamine HCl (Thiamine Hcl 100 Mg Tablet) 100 mg PO DAILY [facility] Stop: 07/11/22 13:44 Last Admin: 07/10/22 08:56 Dose: 100 mg Allergies Allergies Allergy/AdvReac Type Severity Reaction Status Date / Time No Known Allergies Allergy Verified 07/08/22 10:12 Assessment & Plan Assessment & Plan (1) Alcohol use disorder, severe, dependence: Status: Acute Code(s): F10.20 - Alcohol dependence, uncomplicated Assessment and Plan: Naltrexone prescription sent to patient's pharmacy Intake appointment with this radio news writer scheduled--information provided to patient by water treatment plant engineer Total time managing care of this patient today __30__ minutes.
--- NOTE | 2022-07-10 15:40 | P.DS_ITS ---
DS: Providers Provider Date of Service: 07/10/22 Date of admission: 07/08/22 13:37 Primary care physician: Maryjo Huddleston MD Consults: 07/08/22 13:28 Consult to Hematology / Oncology Routine Consulting Provider: Leanne Horowitz Reason for consultation: Pancytopenia 07/08/22 13:42 Addiction Medicine Routine Consulting Provider: Mark Covering Reason for consultation: Alcohol withdrawal DS: Diagnosis Discharge Diagnosis (1) Alcohol use disorder, severe, dependence: Status: Acute DS: Summary Hospital Course Hospital Course: Date of Service: 07/08/22 Attending physician on admission: Terrence Escobar Chief Complaint: Alcohol withdrawal Pt is a 52-year-old male with a PMH significant for alcohol use disorder,? who presents to the ED after a witnessed seizure at work. Pt unable to recall events.? The ED provider spoke with co-worker reports they saw the pt walking when he started mumbling, flapping his hands, and became unsteady. Fell to the pavement with [id number] movements for 2-3 minutes with foaming at the mouth. Pt was unresponsive after the incident and EMS was called. Pt states he has had some nausea and vomiting previosuly, though none now. Bit his tongue during seizure. Denies hematemesis.? Denies any acute pain:? No headache, back ache, chest pain/pressure, palpitations, abdominal pain.? Denies difficulty breathing, no fever, chills, diarrhea.? Patient states he has never experienced anything like this before. No hx of alcohol withdrawal or seizures.? Says he has been drinking around a half a pint of schnapps daily for a long time, though hasn't had anything to drink since Wednesday.? States he has not been eating much lately. In the ED patient was mildly hypertensive at 149/89, temperature 99.2. Labs were significant for pancytopenia of WBC 2.7, H&H of 8.0/22.8, platelets 22, hypomagnesmia of 1.4, transaminitis of total bili of 2.5, direct bilirubin 1.0, AST of 80, ALT of 63.? Troponins negative, ethyl alcohol < 10. CXR showed no acute cardiopulmonary process. CT?of head showed no acute intracranial pathology.? CT of cervical spine showed multilevel degenerative changes without acute abnormality. EKG demonstrated normal sinus rhythm without evidence of ST elevations or depressions. Pt was treated with IVF, lorazepam, magnesium sulfate, and started on phenobarbital protocol. Pt will be admitted to the hospital for treatment of acute alcohol withdrawal. Hospital course 52-year-old male with a PMH significant for alcohol use disorder,? who presents to the ED after a witnessed seizure at work.? [facility] for treatment of acute alcohol withdrawal. Acute alcohol withdrawal/witnessed seizure patient admitted to medical floor and placed on phenobarb protocol and seizure precautions patient had no recurrent seizures during hospitalization patient was seen by Addiction Team and has been recommended outpatient follow-up in next 10 days patient has been started on Vivitrol and naltrexone is strongly recommend to abstain from alcohol, patient continued to have hand tremors but as per patient is chronic. Hypomagnesmia magnesium 1.4 at time of presentation, improved to 1.9 Likely secondary to chronic alcohol use, recommend magnesium 400 mg b.i.d.. Pancytopenia WBC 2.7, H&H 8.0/22.8, platelets 22 on admission noted to have improvement in hematocrit/ platelets, likely secondary to chronic alcohol use folic acid 2.6 contributing to anemia, patient started on folic acid 1 mg daily, Normal Iron studies, normal B12, HIV nonreactive, Seen by Dr. Horowitz [facility] SIEP studies ordered, report pending, recommend outpatient follow-up with Dr. Horowitz for continued follow-up Transaminitis Likely alcoholic hepatitis Total bilirubin 2.5, direct bilirubin 1.0, AST 80, ALT 63, hepatitis panel nonreactive, abdominal ultrasound showed fatty liver strongly recommend to abstain from alcohol HTN stable Continue home meds HLD Continue home meds Time Spent with Patient Time attestation: Total time managing care of this patient today ____ minutes. Discharge coordination time: Greater than 30 minutes Quality: Safe Use of Opioids Does Pt have an Active Cancer Diagnosis on the Problem List?: No Quality: Stroke Does the patient have a stroke diagnosis?: No Physical Exam Vital Signs: Vital Signs: Last Vital Signs Temp 98.0 F 07/10/22 11:28 Pulse 67 07/10/22 11:28 Resp 18 07/10/22 11:28 BP 122/78 07/10/22 11:28 Pulse Ox 97 07/10/22 11:28 O2 Del Method Room Air 07/10/22 11:28 BMI result Body Mass Index 26.8 Const: Other: General awake alert x3, no acute distress.? Neck supple no JVD. CVS? regular rate rhythm, Respiratory lungs clear to auscultation, no respiratory distress, no wheeze, no rhonchi. Gastrointestinal abdomen soft, nontender, bowel sounds audible, no guarding , no rigidity. Extremities no edema. Neuro nonfocal , speech clear, mild hand tremors, Skin no rash Psych appropriate affect DS: Data Data Completed and Pending Labs on day of discharge: Laboratory Results - last 24 hr 07/08/22 07/10/22 07/10/22 15:54 05:31 05:31 WBC 3.8 L RBC 4.23 L Hgb 13.7 L Hct 39.2 L MCV 92.7 MCH 32.4 MCHC 34.9 RDW 13.5 Plt Count 41 L MPV 11.0 Absolute Nucleated RBC 0.000 Nucleated RBC % (auto) 0.0 Sodium 137 Potassium 3.4 Chloride 105 Carbon Dioxide 20 L Anion Gap 15 BUN 12 Creatinine 0.73 Estim Creat Clear Calc 135.2 Estimated GFR > 60 Random Glucose 88 Calcium 8.3 L Total Bilirubin 1.8 H Direct Bilirubin 0.7 H AST 65 H ALT 56 H Alkaline Phosphatase 79 Total Protein 6.0 L Albumin 3.4 L Hepatitis A IgM Ab Nonreactive Hep Bs Antigen Negative Hep Bs Antibody NONREACTIVE Hep B Core Total Ab Nonreactive Hepatitis C Ab (EIA) Nonreactive Discharge Plan Discharge Anticipated Discharge Date/Time: 07/10/22 14:10 Patient Disposition: Home, Self-Care Discharge Diagnosis: Alcohol use Disorder/alcohol withdrawal Folic acid deficiency Pancytopenia Referrals: Maryjo Huddleston MD [Primary Care Provider] - 1 Week Discharge Medications: New magnesium oxide 400 mg (241.3 mg magnesium) Tablet 400 mg PO BIDPC Qty: 60 0RF folic acid 1 mg Tablet 1 mg PO DAILY Qty: 30 0RF naltrexone 50 mg tablet 50 mg PO DAILY Qty: 30 0RF Rx Instructions: take 1/2 daily for 3 days then increase to one tab daily omeprazole 20 mg Capsule,Delayed Release(Dr/Ec) 20 mg PO DAILY@0630 Qty: 30 0RF Continued simvastatin 40 mg tablet 40 mg PO BEDTIME atenolol 50 mg tablet 50 mg PO DAILY Discharge Orders: Discharge Order (Routine); Ordered 07/10/22 Ordered By: Terrence Escobar Diet: Low fat, low cholesterol Activity on Discharge: As tolerated Stand Alone Forms: Patient Portal Discharge page, Work/School Release Care Plan Goals: Strongly recommend to abstain from alcohol recommend outpatient follow-up with Addiction Team take folic acid 1 mg daily Low blood count follow-up with Dr. Horowitz from Hematology Health Concerns: Take all home medications as prescribed and no alcohol Plan of Treatment: Outpatient follow-up with primary care physician, outpatient follow-up with Dr. Horowitz from Hematology for further testing of low blood count, outpatient follow-up with Addiction Team Assessment: as above Patient Instructions: Abuse of Alcohol (GEN)
[2022-07-13 14:59] LABS: IgA 173 mg/dL (47-310); IgG 1418 mg/dL (600-1640); IgM 60 mg/dL (50-300)
== END 2022-07-10 16:31 | disposition home or self-care (01) | DRG 775 ==
LOC: HO.ED 12:35 → HO.EDOVER 14:00 → HO.IMC 14:01
PROVIDERS: Internal Medicine Medical Oncology; Physician Assistant; Admitting Provider Student in an Organized Health Care Education/Training Program; Emergency Provider Emergency Medicine Emergency Medical Services; PCP Family Medicine; Visit Provider Hospitalist
DX: F10.239 Alcohol dependence with withdrawal, unspecified (principal); D61.818 Other pancytopenia; K70.10 Alcoholic hepatitis without ascites; R56.9 Unspecified convulsions; I10 Essential (primary) hypertension; E78.5 Hyperlipidemia, unspecified; E83.42 Hypomagnesemia; Z20.822 Contact with and (suspected) exposure to COVID-19; Z87.891 Personal history of nicotine dependence; Z79.899 Other long term (current) drug therapy
CPT/HCPCS: 36415; 70450; 71045; 72125; 76700; 80048; 80053; 80076; 80307; 81001; 82077; 82607; 82728; 82746; 82784; 83540; 83615; 83735; 84484; 85025; 85027; 85610; 86334; 86704; 86706; 86709; 86803; 87340; 87389; 87635; 93005; 99285; J2060; J2560; J3475

== ENCOUNTER → 2022-07-21 08:48 | Outpatient (BNVA) | payer OTHER, SELFPAY | PROVIDERS: PCP Family Medicine; Visit Provider Nurse Practitioner Psychiatric/Mental Health | DX: Z13.89 Encounter for screening for other disorder (principal) ==

== ENCOUNTER → 2022-08-11 15:06 | Outpatient (BNVA) | payer OTHER, SELFPAY | PROVIDERS: PCP Family Medicine; Visit Provider Nurse Practitioner Psychiatric/Mental Health | DX: F10.20 Alcohol dependence, uncomplicated (principal); Z79.899 Other long term (current) drug therapy | CPT/HCPCS: 80305; 96372 ==

== ENCOUNTER → 2023-03-10 12:53 | Outpatient (BNVA) | payer SELFPAY | PROVIDERS: PCP Family Medicine; Visit Provider Physician Assistant | DX: Z02.79 Encounter for issue of other medical certificate (principal) ==